=== PATIENT | female | born 1965 | race African-American/Black ===

== ENCOUNTER 2021-03-31 12:32 | Inpatient (IN) | payer BC, SELFPAY ==
[2021-03-31 12:33] VITALS: BP 147/99; PULSE 114; RESP 18; TEMP 36.6; O2SAT 100; BMI 22.8
--- NOTE | 2021-03-31 12:57 | CT_ITS ---
STUDY: CT ABDOMEN AND PELVIS WITH CONTRAST REASON FOR EXAM: Female, 56 years old. Abdominal pain. 3 day history of constipation. RADIATION DOSAGE (If Supplied By Facility): CTDIvol = ( 9.61 ) mGy, DLP = ( 454.55 ) mGycm TECHNIQUE: Transaxial images were obtained from the dome of the diaphragm to the symphysis pubis without oral contrast. IV 100mL Isovue-370 was administered. Sagittal and coronal images were reconstructed. Individualized dose optimization techniques were used for this CT. COMPARISON: None. FINDINGS: The visualized lung bases are unremarkable. The visualized portions of the heart are within normal limits. Normal liver. Normal gallbladder and extrahepatic biliary system. Normal spleen. Normal pancreas. Normal bilateral adrenal glands. Normal right kidney. Normal left kidney. Normal visualized stomach. Normal small intestine. There is evidence of a mural thickening of the descending colon as well as the sigmoid colon and rectum with increased markings in the surrounding fat. This is suggestive of a colitis. A moderate amount of fecal material is seen throughout the colon. There is a 1.9 cm x 2.5 cm fluid collection in the region of the anal verge at the level of the perineum. The appendix is visualized and appears normal. Normal abdominal aorta. Normal inferior vena cava. Normal retroperitoneum. Normal urinary bladder. Normal abdominal wall. Normal osseous structures. CT/Abdomen/Pelvis W IV Cont ONLY IMPRESSION: Findings suggestive of colitis of the left hemicolon as described. Moderate amount of fecal material is seen in the colon. A 1.9 cm x 2.5 cm fluid collection is seen in the region of the anal verge at the level of the perineum. Electronically Signed: Nael Paniagua MD at 14:22 EST ,
--- NOTE | 2021-03-31 12:59 | EX.ED.DYSGE1 ---
HPI <Dr. Ulises Soni MD - Last Filed: 04/06/21 09:14> History of Present Illness Chief Complaint: Constipation Informant: patient Narrative Narrative: Patient presents with complaints of constipation. She states her bowel started to kind to get bound up about 2 weeks ago. She was taking stool softeners and initially helping. But now she has not been able to move her bowels the last 3 days. However, when I talked to them concerned there might be more to the story. She is also had pain in the lower abdomen since the beginning. She cannot locate it really side to side. She states it does feel different than her normal constipation. She also has rectal pain that she thinks is due to hemorrhoids. She has a long history of hemorrhoids and is actually had surgery for them twice. No history of bowel disease. No known family history but she is adopted so she does not know. She has not had fevers or chills. No urinary symptoms. No blood in the stool. She states she is starting to get some liquid pasty stool out at this time. She is very uncomfortable. No chest pain. Only abdominal surgery is and a laparoscopy for ovarian cyst. Nothing really makes her symptoms better or worse. [facility] <Dr. Ulises Soni MD - Last Filed: 04/06/21 09:14> [facility] Medical History (Updated 04/02/21 @ 07:[address] Garber Friend, DO) Anemia Carpal tunnel syndrome H/O cardiovascular stress test Heart murmur Kidney stones Medical History no medical history Home Medications docusate sodium [Colace] 200 mg PO DAILY 03/31/21 [History Last Taken 03/30/21] ciprofloxacin HCl 500 mg PO BID #10 tab 04/02/21 [Rx Last Taken Unknown] hydrocortisone [Cortenema] 100 mg TX QHS #840 ml 04/02/21 [Rx Last Taken Unknown] mesalamine 800 mg PO BID #60 tab 04/02/21 [Rx Last Taken Unknown] metronidazole 500 mg PO Q8H #15 tab 04/02/21 [Rx Last Taken Unknown] Allergy/AdvReac Type Severity Reaction Status Date / Time Penicillins [PCN] Allergy Swelling Verified 03/31/21 12:35 prochlorperazine edisylate Allergy slurred Verified 03/31/21 18:28 [From Compazine] speech prochlorperazine maleate Allergy slurred Verified 03/31/21 18:29 [From Compazine] speech Surgical History (Updated 03/31/21 @ 20:22 by Chava Oneal) History of tonsillectomy Previous section Social History Smoking Status: Never smoker ROS <Dr. Ulises Soni MD - Last Filed: 04/06/21 09:14> ROS ED Constitutional Constitutional ED: Denies chills or fever(s) ENT ENT ED: Denies rhinorrhea or sore throat Cardiovascular Cardiovascular: Denies chest pain or palpitations Respiratory/Chest Respiratory/Chest: Denies cough or dyspnea Gastrointestinal Gastrointestinal: Reports abdominal pain, constipation, diarrhea, nausea and other Details: Patient's had constipation but is now getting some liquid stool/diarrhea around that. ; Denies melena or vomiting Genitourinary Genitourinary ED: Denies dysuria Musculoskeletal Musculoskeletal: Denies back pain Integumentary Denies abscess or rash Neurologic Neurologic: Denies headache(s) Psychiatric Psychiatric: Denies depression Endocrine Endocrinology: Denies polydipsia or polyuria Allergic/Immunologic Allergic/Immunologic ED: Denies mouth swelling or urticaria EXAM <Dr. Ulises Soni MD - Last Filed: 04/06/21 09:14> Physical Exam Const Vital Signs: 03/31/21 12:33 Temperature 98 F Temperature Source Temporal Pulse Rate 114 H Respiratory Rate 18 Blood Pressure 147/99 H Blood Pressure Mean 115 Pulse Ox 100 Oxygen Delivery Method Room Air Positive well nourished and well developed Constitutional Narrative: Patient looks uncomfortable. She is lying on her right side. General Appearance ED: well developed HEENT Negative for trauma Eyes General Eye ED: Negative for pale conjunctiva or scleral icterus Neck no JVD Chest Wall inspection of chest normal Resp normal respiratory effort and clear to auscultation bilaterally Effort and Inspection: Negative for pain with movement Auscultation: Negative for rales, rhonchi or wheezes Cardio regular rate and regular rhythm GI normal to inspection, nondistended, normoactive bowel sounds and non-distended GI Narrative: Abdomen is nondistended. Her bowel sounds are normal. She does have some tenderness down in the suprapubic and left lower quadrant. But no rebound or guarding. Rectal exam does show multiple hemorrhoids. The area is very tender but I do not see any sign of erythema warmth swelling or sign of infection. Exam is somewhat limited due to discomfort. No bleeding. Stool was light hicks. Auscultation: normoactive bowel sounds Palpation: soft Back/Spine no CVA tenderness Extremity normal to inspection General Extremety ED: Negative for edema or tenderness General Extremity: Negative for edema Neuro oriented x3 Sensorium / Orientation: alert Psych mental status grossly normal Skin no rashes or lesions noted and no wounds <Dr. Geovanny Padron, - Last Filed: 03/31/21 18:00> Physical Exam Const Vital Signs: 03/31/21 12:33 Temperature 98 F Temperature Source Temporal Pulse Rate 114 H Respiratory Rate 18 Blood Pressure 147/99 H Blood Pressure Mean 115 Pulse Ox 100 Oxygen Delivery Method Room Air MDM <Dr. Ulises Soni MD - Last Filed: 04/06/21 09:14> MDM MDM Narrative Medical decision making narrative: Patient's labs do show elevated white count of 15.9. Hemoglobin platelets are normal. Electrolytes show no marked abnormalities. Urine shows a few red cells but no white cells. My concern is her CT shows findings consistent with colitis but there is also a 1.9 x 2.5 cm fluid collection/abscess near the anal verge perineum on the left side. I think this is why her rectal pain is so significant. This did limit the exam although I do not see external findings of this. She is feeling markedly better after pain meds. She will be given IV antibiotics here. She has a history of allergy to penicillins but she states she has been on Keflex without a problem before. I talked to the surgeon, Dr. Carlson who is coming down to see the patient. Lab Data Attestation: I reviewed the patient's lab results. Labs: Laboratory Results - last 24 hr 03/31/21 03/31/21 03/31/21 13:20 13:20 13:40 WBC 15.9 H RBC 5.67 H Hgb 15.0 Hct 45.8 MCV 80.8 L MCH 26.5 L MCHC 32.8 RDW Std Deviation 39.3 RDW Coeff of Shanika 13.4 Plt Count 352 MPV 9.5 Immature Gran % (Auto) 0.300 Neut % (Auto) 92.2 H Lymph % (Auto) 5.3 L [place] % (Auto) 1.9 Eos % (Auto) 0.0 Baso % (Auto) 0.3 Absolute Neuts (auto) 14.7 H Absolute Lymphs (auto) 0.85 Nucleated RBC % 0 Sodium 139 Potassium 3.6 Chloride 105 Carbon Dioxide 25.0 Anion Gap 9 BUN 6 L Creatinine 0.90 Estim Creat Clear Calc 54.55 Est GFR (MDRD) Af Amer 83 Est GFR (MDRD) Non-Af 68 BUN/Creatinine Ratio 6.7 L Glucose 106 Calcium 9.5 Urine Color Yellow Urine Clarity Sl. Cloudy Urine pH 8.0 Ur Specific [place] 1.010 Urine Protein Negative Urine Glucose (UA) Normal Urine Ketones 15 H Urine Occult Blood 250 H Urine Nitrite Negative Urine Bilirubin Negative Urine Urobilinogen Normal Ur Leukocyte Esterase 25 H Urine RBC 25-50 SEEN Urine WBC 0-5 SEEN Ur Squamous Epith Cells 0-5 SEEN Urine Bacteria 0 SEEN Urine Mucus 0 SEEN Radiography Diagnostic Testing: Clinical Impression(s) from Imaging Studies Abdomen/Pelvis CT 03/31/21 12:57 IMPRESSION: Findings suggestive of colitis of the left hemicolon as described. Moderate amount of fecal material is seen in the colon. A 1.9 cm x 2.5 cm fluid collection is seen in the region of the anal verge at the level of the perineum. Electronically Signed: Nael Paniagua MD at 14:22 EST , <Dr. Geovanny Padron, DO - Last Filed: 03/31/21 18:00> [facility] Narrative Medical decision making narrative: Patient signed out to me for follow-up on consult from Dr. Carlson. Patient had presented with rectal pain and has an abscess of 1.9 x 2.5 at the anal verge. Blood work was reviewed and it is noted the patient has leukocytosis. Renal function is normal. Dr. Carlson came and examined the patient and recommended admission with IV antibiotics and a GI consult. I spoke with Dr. Carrillo who was amenable to this. After this I spoke with the hospitalist for admission. Lab Data Attestation: I reviewed the patient's lab results. Labs: Laboratory Results - last 24 hr 03/31/21 03/31/21 03/31/21 13:20 13:20 13:40 WBC 15.9 H RBC 5.67 H Hgb 15.0 Hct 45.8 MCV 80.8 L MCH 26.5 L MCHC 32.8 RDW Std Deviation 39.3 RDW Coeff of Shanika 13.4 Plt Count 352 MPV 9.5 Immature Gran % (Auto) 0.300 Neut % (Auto) 92.2 H Lymph % (Auto) 5.3 L [place] % (Auto) 1.9 Eos % (Auto) 0.0 Baso % (Auto) 0.3 Absolute Neuts (auto) 14.7 H Absolute Lymphs (auto) 0.85 Nucleated RBC % 0 Sodium 139 Potassium 3.6 Chloride 105 Carbon Dioxide 25.0 Anion Gap 9 BUN 6 L Creatinine 0.90 Estim Creat Clear Calc 54.55 Est GFR (MDRD) Af Amer 83 Est GFR (MDRD) Non-Af 68 BUN/Creatinine Ratio 6.7 L Glucose 106 Calcium 9.5 Urine Color Yellow Urine Clarity Sl. Cloudy Urine pH 8.0 Ur Specific [place] 1.010 Urine Protein Negative Urine Glucose (UA) Normal Urine Ketones 15 H Urine Occult Blood 250 H Urine Nitrite Negative Urine Bilirubin Negative Urine Urobilinogen Normal Ur Leukocyte Esterase 25 H Urine RBC 25-50 SEEN Urine WBC 0-5 SEEN Ur Squamous Epith Cells 0-5 SEEN Urine Bacteria 0 SEEN Urine Mucus 0 SEEN Radiography Diagnostic Testing: Clinical Impression(s) from Imaging Studies Abdomen/Pelvis CT 03/31/21 12:57 IMPRESSION: Findings suggestive of colitis of the left hemicolon as described. Moderate amount of fecal material is seen in the colon. A 1.9 cm x 2.5 cm fluid collection is seen in the region of the anal verge at the level of the perineum. Electronically Signed: Nael Paniagua MD at 14:22 EST , Discharge Plan Dx/Rx/DC Orders Clinical Impression: Acute colitis, Rectal abscess, Leukocytosis Disposition Disposition: Acute Care [facility]
[2021-03-31] MEDS: Morphine 4 MG/ML Syringe IV ×2 (13:17→17:59)
[2021-03-31] MEDS: 0.9% Normal Saline 1,000 ML 1000 ML IV (13:18)
[2021-03-31] MEDS: Ondansetron 4 MG/2 ML Vial IV ×2 (13:18→23:00)
[2021-03-31 13:28] LABS: Absolute Lymphocyte Count 0.85 X10^3/uL (0.83-4.51); Absolute Neutrophil Count 14.7 X10^3/uL (2.0-7.7); Basophil# 0.05 X10^3/uL; Basophil% 0.3 % (0-1); Hematocrit 45.8 % (37-47); Lymphocyte # 0.85 X10^3/ul (0.83-4.51); Lymphocyte % 5.3 % (19-41); Mean Corp Hgb Conc 32.8 g/dL (32-36); Mean Corpuscular Hgb 26.5 pg (27.0-32.0); Mean Corpuscular Volume 80.8 fL (81-99); Mean Platelet Vol. 9.5 fl (6.2-12.0); Monocyte% 1.9 % (0-10); NRBC Flagged by Analyzer 0 % (0-5); Neutrophil # 14.69 X10^3/uL (2.7-7.7); Neutrophil % 92.2 % (47-70); Platelet Count 352 K/mm3 (150-450); RBC Distribution Width CV 13.4 % (11.6-14.6); RBC Distribution Width SD 39.3 fl (35.1-43.9); Red Blood Count 5.67 M/mm3 (4.2-5.4); White Blood Count 15.9 K/mm3 (4.4-11.0)
[2021-03-31 13:42] LABS: Bacteria 0 SEEN /hpf (None Seen); Mucous, Urine 0 SEEN /hpf (<or=2+)
[2021-03-31 13:43] LABS: Anion Gap 9 (5-15); BUN 6 mg/dL (7-18); BUN/Creat Ratio 6.7 RATIO (10-20); Calcium,Total 9.5 mg/dL (8.5-10.1); Chloride 105 mmol/L (98-107); EST Glomerular Filtration Rate 68 mL/min (>60); Est Glom Filt Rate - Afr Amer 83 mL/min (>60); Estimated Creatinine Clearance 54.55 ml/min; Glucose 106 mg/dL (74-106); Potassium 3.6 mmol/L (3.5-5.1); Sodium Level 139 mmol/L (136-145)
[2021-03-31 13:45] LABS: Color, Urine Yellow (Yellow); Glucose, Dipstick Normal (Normal); Ketone-Dipstick 15 mg/dl (Negative); Leukocyte Esterase-Dipstick 25 /ul (Negative); Nitrite-Dipstick Negative (Negative); Occult Blood-Urine 250 /ul (Negative); Protein-Dipstick Negative (Negative); Urine Bilirubin Dipstick Negative (Negative); Urine Clarity Sl. Cloudy (Clear); Urine Urobilinogen Normal (Normal)
[2021-03-31 13:53] LABS: Red Blood Cells-Urine 25-50 SEEN /hpf (0-5); Squamous Epithelial Cells - UA 0-5 SEEN /hpf (5-10); White Blood Cells 0-5 SEEN /hpf (0-5)
--- NOTE | 2021-03-31 17:15 | CON.PCM.SX_ITS ---
Assessment & Plan Assessment/Plan (1) Rectal abscess: PLAN: Patient with a rectal abscess adjacent the posterior rectal wall. Laboratories show leukocytosis of almost 16,000. Unfortunately, per CT imaging, the abscess is quite high along the rectum roughly at the level of the pelvic floor levators. Patient has some tenderness on exam with the perianal skin, but there is no evidence of tracking to the level of the anus either on exam or with imaging. At this location, unfortunately, makes it rather inaccessible via either transperitoneal or transrectal approaches. CT-guided drain is not advised at this time given the proximity of the patient's rectum and risk for rectal injury. Therefore recommend conservative management with IV antibiotics. (2) Acute colitis: PLAN: This is a 56-year-old female with a history of constipation and normal colonoscopy 6 years ago but is due for an updated exam who presents with acute?onset abdominal, pelvic, and perianal pain. It is unusual to see concurrent colitis with a simple perirectal abscess. Therefore, I am concerned for the possibility of underlying inflammatory bowel disease. On exam, patient has tenderness with palpation, but denies any rebound effect. ?Recommend conservative management with n.p.o. except sips and chips and IV antibiotic therapy ?Recommend gastroenterology consult for rule out IBD ?Surgery will continue to follow patient's abdominal and perianal exams HPI Consult Data Date of Consult: 03/31/21 HPI Narrative HPI Narrative: NIXON HULL, is a 56 F who presents to [facility] with complaints of progressive abdominal pain, pain with defecation, increased frequency of bowel movements, and some fecal incontinence. Patient admits to a longstanding history of constipation for which she is experienced hemorrhoids and required surgery on 2 separate occasions. She states she began feeling more constipated 2 weeks ago and began taking [id number] stool softeners. Yesterday she noted some bloating, but today was awoken early in the morning with abdominal pain. Every time she experienced a bowel movement her pain inte nsified. She states she was kept from coming into the hospital because every time she tried to stand up she had a runny stool. She confirms there was some blood noted with these bowel movements as well. She experienced associated chills but denies any fevers. She has never had episodes like this before. Patient underwent colonoscopy over [address] [facility]. She states the results were fine and was given a 5-year follow-up. She is not able to relate to her family history since she was adopted at a very early age. [facility] Medical History no medical history Home Medications docusate sodium [Colace] 200 mg PO DAILY 03/31/21 [History Last Taken 03/30/21] Allergy/AdvReac Type Severity Reaction Status Date / Time Penicillins [PCN] Allergy Swelling Verified 03/31/21 12:35 prochlorperazine edisylate Allergy Other Verified 03/31/21 12:35 [From Compazine] prochlorperazine maleate Allergy Other Verified 03/31/21 12:35 [From Compazine] Surgical History History of tonsillectomy Social History Smoking Status: Never smoker Physical Exam Const alert and oriented x3 General Appearance: cooperative GI soft to palpation GI Narrative: Patient has no obvious scars. Patient tender to palpation diffusely but left lower quadrant is most significant. She denies any rebound tenderness Inspection: Negative for abdominal distention Rectal Exam: external hemorrhoid(s) and other Other Details: Patient with some residual circumferential skin tags. There is tenderness with palpation of the perianal skin right greater than left. No fluctuance or draining sinus tracts Lab / Micro Data Result Diagrams: 03/31/21 13:20 03/31/21 13:20 Labs: Laboratory Results - last 24 hr 03/31/21 13:20: WBC 15.9 H, RBC 5.67 H, Hgb 15.0, Hct 45.8, MCV 80.8 L, MCH 26.5 L, MCHC 32.8, RDW Std Deviation 39.3, RDW Coeff of Shanika 13.4, Plt Count 352, MPV 9.5, Immature Gran % (Auto) 0.300, Neut % (Auto) 92.2 H, Lymph % (Auto) 5.3 L, [place] % (Auto) 1.9, Eos % (Auto) 0.0, Baso % (Auto) 0.3, Absolute Neuts (auto) 14.7 H, Absolute Lymphs (auto) 0.85, Nucleated RBC % 0 02/16/22 13:20: Sodium 139, Potassium 3.6, Chloride 105, Carbon Dioxide 25.0, Anion Gap 9, BUN 6 L, Creatinine 0.90, Estim Creat Clear Calc 54.55, Est GFR (MDRD) Af Amer 83, Est GFR (MDRD) Non-Af 68, BUN/Creatinine Ratio 6.7 L, Glucose 106, Calcium 9.5 03/31/21 13:40: Urine Color Yellow, Urine Clarity Sl. Cloudy, Urine pH 8.0, Ur Specific [place] 1.010, Urine Protein Negative, Urine Glucose (UA) Normal, Urine Ketones 15 H, Urine Occult Blood 250 H, Urine Nitrite Negative, Urine Bilirubin Negative, Urine Urobilinogen Normal, Ur Leukocyte Esterase 25 H, Urine RBC 25-50 SEEN, Urine WBC 0-5 SEEN, Ur Squamous Epith Cells 0-5 SEEN, Urine Bacteria 0 SEEN, Urine Mucus 0 SEEN Radiology Impression Abdomen/Pelvis CT 03/31/21 12:57 IMPRESSION: Findings suggestive of colitis of the left hemicolon as described. Moderate amount of fecal material is seen in the colon. A 1.9 cm x 2.5 cm fluid collection is seen in the region of the anal verge at the level of the perineum. Electronically Signed: Nael Paniagua MD at 14:22 EST , Charges/Coding Visit Charges Inpatient E&M: 79151 Init Hosp L2
--- NOTE | 2021-03-31 17:51 | NURSING ---
DR MILAN FOR DR MCCOY
--- NOTE | 2021-03-31 17:53 | NURSING ---
MED SURG KAYLI ABSCESS
--- NOTE | 2021-03-31 18:10 | CASEMGMT ---
JOSE MONDRAGON Assessment: RN CM to room to meet with patient for initial transition planning/care coordination assessment. RN ALANNA introduced self and role at [facility]. Patient voices understanding and consents to assessment at this time. Patient's Ruthy present at bedside and active in transition planning. Patient is alert and oriented and answers all questions appropriately, reclined on ER cart in no apparent distress. Care providers, pharmacy, and demographics verified/updated at this time. Admitting Dx: rectal abscess PCP: Luz Maria Mills Specialists: Denies Preferred Pharmacy: [facility] Insurance: [place] Prescription Benefit: yes Living Will/HPOA: Patient denies having a living will. HPOA is Ruthy Grimes. Patient made aware this form is not on file at [facility] and may be brought in to be scanned into record. LNOK: Ruthy Grimes Living Arrangements: Patient lives with in single story, ground level duplex with no steps to enter. Patient states independent with ADLs prior to hospitalization. 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 Smoking/ETOH: Never smoker, denies ETOH use Transportation: Patient drives self and denies transportation concerns. DME/HHC/SNF: Patient denies having any DME in the home and denies need for DME at this time. Patient denies previous HHC or SNF stays. Patient has no concerns with going home at time of discharge. CM to follow for any discharge planning/needs. Patient voices no concerns/needs at this time. Advised patient to ask for CM if any questions/concerns/needs arise. Voices understanding. Plan: home
--- NOTE | 2021-03-31 18:12 | HP.PCM.HOS_ITS ---
HPI - General General Date of Admission: 03/31/21 Date of Service: 03/31/21 Chief Complaint: Chronic constipation and rectal pain for 3 days. Rectal bleed today HPI Narrative NIXON HULL, is a 56 F was sent to ER from urgent care. She has history of chronic constipation and usually have dry, hard pellet-like stool. She is having rectal pain which is progressively getting worse along with loose bowel movement for last 3 days. Rectal pain is more intense throbbing pain, 10/10 intensity, associated with rectal bleed today. She had 5-7 loose bowel movements with bright red rectal bleed today. She will remember that she had colonoscopy about 4 years ago and was not told anything abnormal as per the patient and . She has chills and temperature was 98.6 Fahrenheit in urgent care. Denies any chronic problem of GI bleed. Patient also noticed vaginal bleeding although she had not any menstrual period For last 2 years which she might have confused with rectal bleed. ED triage vitals shows tachycardia heart rate 114, BP 147/99, normal respiratory rate and pulse ox. Labs reviewed, imaging reviewed readmission assessment plan. [facility] Medical History Anemia Carpal tunnel syndrome Heart murmur Kidney stones Medical History no medical history Home Medications docusate sodium [Colace] 200 mg PO DAILY 03/31/21 [History Last Taken 03/30/21] Allergy/AdvReac Type Severity Reaction Status Date / Time Penicillins [PCN] Allergy Swelling Verified 03/31/21 12:35 prochlorperazine edisylate Allergy slurred Verified 03/31/21 18:28 [From Compazine] speech prochlorperazine maleate Allergy slurred Verified 03/31/21 18:29 [From Compazine] speech Surgical History History of tonsillectomy Social History Smoking Status: Never smoker ROS ROS Narrative Constitutional: Rectal pain chills but no fever. Mild fatigue/weakness HEENT: Reports systems reviewed and no addt'l complaints, except as documented Respiratory/Chest: Denies chest pain, shortness of breath at rest or with exertion Gastrointestinal: As described in HPI. History of chronic hemorrhoid, last tomorrow surgery more than 20 years ago Genitourinary: Self-reported vaginal bleeding possible from rectum. Denies burning urination or new urinary tract symptoms Musculoskeletal: Denies joint pain and limited range of motion Neurologic: Denies seizure-like activity skin: No ulcer. No rash Endocrinology: Reports systems reviewed and no addt'l complaints, except as documented Hematologic/Lymphatic: Reports systems reviewed and no addt'l complaints, except as documented Rest 14 ROS are negative except as mentioned in HPI Vital Signs Vital Signs Vital Signs: 03/31/21 12:33 Temperature 98 F Temperature Source Temporal Pulse Rate 114 H Respiratory Rate 18 Blood Pressure 147/99 H Blood Pressure Mean 115 Pulse Ox 100 Oxygen Delivery Method Room Air Weight Weight: 125 lb Body Mass Index (BMI) 22.8 Physical Exam Narrative General: Alert, Oriented x3, Cooperative HEENT: Atraumatic, PERRLA, EOMI, Normocephalic Oral: Oral mucosa dry. No Gingival or Mucosal Lesions/ Ulcerations Neck: Supple, No JVD, Negative Carotid Bruits Lungs: Air entry equal in bilateral lung bases. No crepitation/rhonchi Cardiovascular: Regular rate, Regular Rhythm, Normal S1, Normal S2, No murmurs Abdomen: Bowel Sounds Present, Soft, moderate to severe tenderness present on left lower quadrant. Right: Exam already done by surgeon. : No renal angle tenderness. No suprapubic tenderness. Extremities: No edema, Capillary Refill Less than 3 Seconds Skin: No rashes, No breakdown Musculoskeletal: No Tenderness to Palpation of Joints or Extremities Neurological: Cranial nerves II-XII grossly intact, DTR 2+/4 and Symmetrical, Neuro grossly intact Psych/Mental Status: Normal Affect, Appropriate. Results Lab / Micro Data Result Diagrams: 03/31/21 13:20 03/31/21 13:20 Labs: Laboratory Results - last 24 hr 03/31/21 13:20: WBC 15.9 H, RBC 5.67 H, Hgb 15.0, Hct 45.8, MCV 80.8 L, MCH 26.5 L, MCHC 32.8, RDW Std Deviation 39.3, RDW Coeff of Shanika 13.4, Plt Count 352, MPV 9.5, Immature Gran % (Auto) 0.300, Neut % (Auto) 92.2 H, Lymph % (Auto) 5.3 L, [place] % (Auto) 1.9, Eos % (Auto) 0.0, Baso % (Auto) 0.3, Absolute Neuts (auto) 14.7 H, Absolute Lymphs (auto) 0.85, Nucleated RBC % 0 03/31/21 13:20: Sodium 139, Potassium 3.6, Chloride 105, Carbon Dioxide 25.0, Anion Gap 9, BUN 6 L, Creatinine 0.90, Estim Creat Clear Calc 54.55, Est GFR (MDRD) Af Amer 83, Est GFR (MDRD) Non-Af 68, BUN/Creatinine Ratio 6.7 L, Glucose 106, Calcium 9.5 03/31/21 13:40: Urine Color Yellow, Urine Clarity Sl. Cloudy, Urine pH 8.0, Ur Specific [place] 1.010, Urine Protein Negative, Urine Glucose (UA) Normal, Urine Ketones 15 H, Urine Occult Blood 250 H, Urine Nitrite Negative, Urine Bilirubin Negative, Urine Urobilinogen Normal, Ur Leukocyte Esterase 25 H, Urine RBC 25-50 SEEN, Urine WBC 0-5 SEEN, Ur Squamous Epith Cells 0-5 SEEN, Urine Bacteria 0 SEEN, Urine Mucus 0 SEEN Radiology Impression Abdomen/Pelvis CT 03/31/21 12:57 IMPRESSION: Findings suggestive of colitis of the left hemicolon as described. Moderate amount of fecal material is seen in the colon. A 1.9 cm x 2.5 cm fluid collection is seen in the region of the anal verge at the level of the perineum. Electronically Signed: Nael Paniagua MD at 14:22 EST , Assessment & Plan Assessment/Plan (1) Rectal abscess: PLAN: 1. Rectal abscess: [facility] abdomen shows 1.9 x 2.5 cm fluid collection in region of anal verge at level of perineum. Patient has leukocytosis with left shift. H&H 15/45.8. UA shows RBC 25-50 cells, LE 25 but negative nitrite. Electrolytes within normal limit. Anion gap 9. Patient evaluated by surgeon and it seems rectal abscess is quite high at level of pelvic floor collimators. As per surgeon on rectal exam, external hemorrhoids none circumferential residual skin tags but no fluctuance or draining sinus tract found. No abscesses not amenable for drainage either transperitoneal or transrectal approach and CT-guided drainage not advised due to proximity of patient's rectum. Patient had IV meropenem in the ER. Started on IV Cipro and Flagyl. Clear liquid diet. 2. Left sided colitis: CT abdomen shows colitis of left hemicolon with moderate fecal matter. There is concern for inflammatory bowel disease and was recommended gastroenterology consult by surgeon. 3. History of parapharyngeal and retropharyngeal abscess in June 2014 for she was admitted. 4. History of chronic constipation, hemorrhoids with suspicion of IBS: Patient had 2 hemorrhoidal surgery, last one more than 20 years ago. No recent GI bleed until bright red rectal bleed today. 5. History of kidney stones and C Total time of the visit including total time spent in counseling or coordination of care, (more than 50% of the total time, spent in obtaining medical information from nurses and other ancillary care providers,explaining to the patient about labs, imaging, diagnosis and management), discussion with recruiting operations consultant, review of labs and imaging is 45 minutes. Living will/advanced directive/end of life care: Patient does have living will or advanced directive. Her is power of health care attorney for health. After discu ssion of benefits/risks procedures involved with full code, DNR CC arrest and DNR CC, the patient and her opted for full code. Patient does want artificial life support including intubation, tube feed, ventilator and/chest compression, central venous catheter, vasopressor and DC shock if needed Total time spent in ldby-ur-ptix encounter in discussion of advanced directive 16 minutes. Charges/Coding Visit Charges Inpatient E&M: 97314 Init Hosp L3 Procedures Hospitalists Procedures: 24065 Advncd Care Plan 30 Min
[2021-03-31 18:26] VITALS: BP 138/91; PULSE 68; RESP 16; TEMP 36.9; O2SAT 98
[2021-03-31 18:44] VITALS: BMI 23.1
[2021-03-31 18:48] VITALS: BP 126/76; PULSE 64; RESP 16; TEMP 37; O2SAT 100
[2021-03-31 19:10] LABS: AST(SGOT) 19 U/L (15-37); Alanine Aminotransfer ALT/SGPT 18 U/L (13-56); Alkaline Phosphatase 106 U/L (45-117); Bilirubin, Direct 0.21 mg/dL (0.00-0.30); Magnesium 1.9 mg/dL (1.6-2.6)
--- NOTE | 2021-03-31 19:18 | EX.PCM.CON.G ---
HPI Consult Data Date of Consult: 03/31/21 HPI Narrative HPI Narrative: NIXON HULL, is a 56 F who presents presents from home with worsening abdominal pain. She has a history of hemorrhoidal disease status post 2 hemorrhoidectomies. She also had removal of an ovarian cyst. She has been struggling with chronic constipation. She is not known to have diverticular disease. She has been having some rectal pain over the last several days. It progressed to lower GI bleeding after finally having a bowel movement. She states her bowel started to kind to get bound up about 2 weeks ago. She was taking stool softeners and initially helping. But now she has not been able to move her bowels the last 3 days. However, when I talked to them concerned there might be more to the story. She is also had pain in the lower abdomen since the beginning. She cannot locate it really side to side. She states it does feel different than her normal constipation. She also has rectal pain that she thinks is due to hemorrhoids. No history of bowel disease. No known family history but she is adopted so she does not know. She has not had fevers or chills. No urinary symptoms. No blood in the stool. She states she is starting to get some liquid pasty stool out at this time. She is very uncomfortable. No chest pain. [facility] Medical History Anemia Carpal tunnel syndrome Heart murmur Kidney stones Medical History no medical history Home Medications docusate sodium [Colace] 200 mg PO DAILY 03/31/21 [History Last Taken 03/30/21] Allergy/AdvReac Type Severity Reaction Status Date / Time Penicillins [PCN] Allergy Swelling Verified 03/31/21 12:35 prochlorperazine edisylate Allergy slurred Verified 03/31/21 18:28 [From Compazine] speech prochlorperazine maleate Allergy slurred Verified 03/31/21 18:29 [From Compazine] speech Surgical History History of tonsillectomy Social History Smoking Status: Never smoker ROS Gastrointestinal Gastrointestinal: Reports other Details: Rectal pain Lab / Micro Data Result Diagrams: 03/31/21 13:20 03/31/21 13:20 Labs: Laboratory Results - last 24 hr 03/31/21 13:20: WBC 15.9 H, RBC 5.67 H, Hgb 15.0, Hct 45.8, MCV 80.8 L, MCH 26.5 L, MCHC 32.8, RDW Std Deviation 39.3, RDW Coeff of [place] 13.4, Plt Count 352, MPV 9.5, Immature Gran % (Auto) 0.300, Neut % (Auto) 92.2 H, Lymph % (Auto) 5.3 L, [place] % (Auto) 1.9, Eos % (Auto) 0.0, Baso % (Auto) 0.3, Absolute Neuts (auto) 14.7 H, Absolute Lymphs (auto) 0.85, Nucleated RBC % 0 03/31/21 13:20: Sodium 139, Potassium 3.6, Chloride 105, Carbon Dioxide 25.0, Anion Gap 9, BUN 6 L, Creatinine 0.90, Estim Creat Clear Calc 54.55, Est GFR (MDRD) Af Amer 83, Est GFR (MDRD) Non-Af 68, BUN/Creatinine Ratio 6.7 L, Glucose 106, Calcium 9.5 03/31/21 13:20: Magnesium 1.9, Total Bilirubin 0.90, Direct Bilirubin 0.21, AST 19, ALT 18, Alkaline Phosphatase 106, Total Protein 8.0, Albumin 4.0, Globulin 4.0 03/31/21 13:40: Urine Color Yellow, Urine Clarity Sl. Cloudy, Urine pH 8.0, Ur Specific [place] 1.010, Urine Protein Negative, Urine Glucose (UA) Normal, Urine Ketones 15 H, Urine Occult Blood 250 H, Urine Nitrite Negative, Urine Bilirubin Negative, Urine Urobilinogen Normal, Ur Leukocyte Esterase 25 H, Urine RBC 25-50 SEEN, Urine WBC 0-5 SEEN, Ur Squamous Epith Cells 0-5 SEEN, Urine Bacteria 0 SEEN, Urine Mucus 0 SEEN Radiology Impression Abdomen/Pelvis CT 03/31/21 12:57 IMPRESSION: Findings suggestive of colitis of the left hemicolon as described. Moderate amount of fecal material is seen in the colon. A 1.9 cm x 2.5 cm fluid collection is seen in the region of the anal verge at the level of the perineum. Electronically Signed: Nael Paniagua MD at 14:22 EST , Assessment & Plan Assessment/Plan (1) Acute colitis: PLAN: Due to her diagnosis does include ischemic colitis, ulcerative colitis, less likely Crohn's disease, stercoral ulcer syndrome. She should undergo colonoscopy evaluate her lower GI tract. She was explained alternatives, risk, benefits including understanding bleeding, infection, sepsis, perforation, need for emergency or . She have an ASA of 1. (2) Rectal abscess: PLAN: She will undergo colonoscopy to evaluate her rectum. She will likely need MRI of the pelvis to make sure that there is no area that can be drained percutaneously or surgically. Charges/Coding Visit Charges Inpatient E&M: 41311 Init Hosp L3
[2021-03-31] MEDS: Bisacodyl 5 MG Tablet 20 MG PO (20:01)
[2021-03-31] MEDS: Lactated Ringers 1,000 ML 100 ML IV (20:01)
[2021-03-31] MEDS: metroNIDAZOLE 500 MG/100 ML BAG 100 MG IV (20:01)
[2021-03-31] MEDS: Polyethylene Glycol 3350 BOWEL PREP PO (20:33)
[2021-03-31] MEDS: Ciprofloxacin 400 MG/200 ML BAG 200 MG IV (21:38)
[2021-03-31] MEDS: Morphine 2 MG/ML Syringe IV (23:00)
[2021-04-01] VITALS (11 sets, daily range): BP systolic 98–133; BP diastolic 62–86; PULSE 59–86; RESP 16–17; TEMP 36.6–37.7; O2SAT 96–100; BMI 23.1
[2021-04-01] MEDS: Lactated Ringers 1,000 ML 100 ML IV (05:43)
[2021-04-01] MEDS: metroNIDAZOLE 500 MG/100 ML BAG 100 MG IV ×3 (05:43→21:38)
[2021-04-01 06:44] LABS: Absolute Lymphocyte Count 2.31 X10^3/uL (0.83-4.51); Absolute Neutrophil Count 6.1 X10^3/uL (2.0-7.7); Basophil# 0.04 X10^3/uL; Basophil% 0.4 % (0-1); Eosinophil# 0.08 X10^3/uL; Eosinophils% 0.9 % (0-5); Hematocrit 35.9 % (37-47); Lymphocyte # 2.31 X10^3/ul (0.83-4.51); Lymphocyte % 25.3 % (19-41); Mean Corp Hgb Conc 33.4 g/dL (32-36); Mean Corpuscular Hgb 27.4 pg (27.0-32.0); Mean Platelet Vol. 9.2 fl (6.2-12.0); Monocyte# 0.51 X10^3/uL; Monocyte% 5.6 % (0-10); NRBC Flagged by Analyzer 0 % (0-5); Neutrophil # 6.13 X10^3/uL (2.7-7.7); Neutrophil % 67.3 % (47-70); Platelet Count 252 K/mm3 (150-450); RBC Distribution Width CV 13.4 % (11.6-14.6); RBC Distribution Width SD 40.1 fl (35.1-43.9); Red Blood Count 4.38 M/mm3 (4.2-5.4); White Blood Count 9.1 K/mm3 (4.4-11.0)
[2021-04-01 07:49] LABS: Anion Gap 6 (5-15); BUN 6 mg/dL (7-18); BUN/Creat Ratio 7.7 RATIO (10-20); Calcium,Total 8.1 mg/dL (8.5-10.1); Chloride 106 mmol/L (98-107); Creatinine, Serum 0.78 mg/dL (0.55-1.02); EST Glomerular Filtration Rate 81 mL/min (>60); Est Glom Filt Rate - Afr Amer 98 mL/min (>60); Estimated Creatinine Clearance 62.94 ml/min; Glucose 91 mg/dL (74-106); Potassium 3.4 mmol/L (3.5-5.1); Sodium Level 138 mmol/L (136-145)
--- NOTE | 2021-04-01 09:52 | PN.SURG_ITS ---
Subjective Subjective Patient was seen and examined this morning during AM rounds. She reports that she is feeling much better. She is currently ingesting a bowel prep for a colonoscopy anticipated this afternoon. Although she reports improvement in her abdominal pain, she is still experiencing painful bowel movements. She describes her stools as loose and associated with a small amount of bright red blood. Objective Data Objective Data Vital Signs: Vital Signs Temp Pulse Resp BP Pulse Ox 98.1 F 67 16 109/62 100 04/01/21 08:33 04/01/21 08:33 04/01/21 08:33 04/01/21 08:33 04/01/21 08:33 Oxygen Delivery Method Room Air Weight: 126 lb 8.725 oz Body Mass Index (BMI) 23.1 Intake & Output: Intake and Output for Last 24 Hours 03/30/21 03/31/21 04/01/21 23:59 23:59 23:59 Intake Total 1420 / 2620 2510 / 2510 Balance 1420 / 2620 2510 / 2510 Lab / Micro Data Result Diagrams: 04/01/21 06:37 04/01/21 06:37 Labs: Laboratory Results - last 24 hr 03/31/21 13:20: WBC 15.9 H, RBC 5.67 H, Hgb 15.0, Hct 45.8, MCV 80.8 L, MCH 26.5 L, MCHC 32.8, RDW Std Deviation 39.3, RDW Coeff of [place]ika 13.4, Plt Count 352, MPV 9.5, Immature Gran % (Auto) 0.300, Neut % (Auto) 92.2 H, Lymph % (Auto) 5.3 L, [place] % (Auto) 1.9, Eos % (Auto) 0.0, Baso % (Auto) 0.3, Absolute Neuts (auto) 14.7 H, Absolute Lymphs (auto) 0.85, Nucleated RBC % 0 03/31/21 13:20: Sodium 139, Potassium 3.6, Chloride 105, Carbon Dioxide 25.0, Anion Gap 9, BUN 6 L, Creatinine 0.90, Estim Creat Clear Calc 54.55, Est GFR (MDRD) Af Amer 83, Est GFR (MDRD) Non-Af 68, BUN/Creatinine Ratio 6.7 L, Glucose 106, Calcium 9.5 03/31/21 13:20: Magnesium 1.9, Total Bilirubin 0.90, Direct Bilirubin 0.21, AST 19, ALT 18, Alkaline Phosphatase 106, Total Protein 8.0, Albumin 4.0, Globulin 4.0 03/31/21 13:40: Urine Color Yellow, Urine Clarity Sl. Cloudy, Urine pH 8.0, Ur Specific [place] 1.010, Urine Protein Negative, Urine Glucose (UA) Normal, Urine Ketones 15 H, Urine Occult Blood 250 H, Urine Nitrite Negative, Urine Bilirubin Negative, Urine Urobilinogen Normal, Ur Leukocyte Esterase 25 H, Urine RBC 25-50 SEEN, Urine WBC 0-5 SEEN, Ur Squamous Epith Cells 0-5 SEEN, Urine Bacteria 0 SEEN, Urine Mucus 0 SEEN 04/01/21 06:37: WBC 9.1, RBC 4.38, Hgb 12.0, Hct 35.9 L, MCV 82.0, MCH 27.4, MCHC 33.4, RDW Std Deviation 40.1, RDW Coeff of [place]ika 13.4, Plt Count 252, MPV 9.2, Immature Gran % (Auto) 0.500, Neut % (Auto) 67.3, Lymph % (Auto) 25.3, [place] % (Auto) 5.6, Eos % (Auto) 0.9, Baso % (Auto) 0.4, Absolute Neuts (auto) 6.1, Absolute Lymphs (auto) 2.31, Nucleated RBC % 0 04/01/21 06:37: Sodium 138, Potassium 3.4 L, Chloride 106, Carbon Dioxide 26.0, Anion Gap 6, BUN 6 L, Creatinine 0.78, Estim Creat Clear Calc 62.94, Est GFR (MDRD) Af Amer 98, Est GFR (MDRD) Non-Af 81, BUN/Creatinine Ratio 7.7 L, Glucose 91, Calcium 8.1 L Radiography Diagnostic Testing: Radiology Impression Abdomen/Pelvis CT 03/31/21 12:57 IMPRESSION: Findings suggestive of colitis of the left hemicolon as described. Moderate amount of fecal material is seen in the colon. A 1.9 cm x 2.5 cm fluid collection is seen in the region of the anal verge at the level of the perineum. Electronically Signed: Nael Paniagua MD at 14:22 EST , Physical Exam Const oriented x3 and no apparent distress Resp normal respiratory effort GI soft to palpation GI Narrative: Patient has significant tenderness in the left lower quadrant just above her pubic bone with some mild voluntary guarding but no rebound tenderness Palpation: tender LLQ Assessment & Plan Assessment/Plan (1) Acute colitis: PLAN: Abdominal exam appears somewhat improved hospital day 2. Patient due for colonoscopy with gastroenterology later today when she completes bowel prep. ?We will follow the results of the above scope ?Continue IV antibiotic therapy ?Given the patient's improvement in clinical exam, could consider advancement to a clear liquid diet following endoscopy, from a surgical standpoint (2) Rectal abscess: PLAN: Patient relates ongoing discomfort from bowel movements. Patient denies any reports of purulent discharge that might suggest spontaneous transrectal drainage. CT imaging was reviewed again and it appears she has an element of proctitis along with a perirectal abscess. Unfortunately CT imaging demonstrates this abscess to be rather narrow and located in a difficult position to be accessed without advanced imaging. Therefore, recommend continued conservative management with IV antibiotics and will again follow results of his afternoon's scope. Charges/Coding Visit Charges Inpatient E&M: 93962 Subs Hosp L2
[2021-04-01] MEDS: Ciprofloxacin 400 MG/200 ML BAG 200 MG IV ×2 (10:26→22:45)
--- NOTE | 2021-04-01 10:59 | PN.HOSP_ITS ---
Documented by User: Ab LORENZO 04/01/21 11:14 Subjective Subjective Patient is a 56-year-old female comfortably resting in bed, alert and orient x3. Patient denies development of any new symptoms overnight. Does not appear in acute distress. Objective Data Objective Data Vital Signs: Vital Signs Temp Pulse Resp BP Pulse Ox 98.1 F 67 16 109/62 100 04/01/21 08:33 04/01/21 08:33 04/01/21 08:33 04/01/21 08:33 04/01/21 08:33 Oxygen Delivery Method Room Air Weight: 126 lb 8.725 oz Body Mass Index (BMI) 23.1 Intake & Output: Intake and Output for Last 24 Hours 03/30/21 03/31/21 04/01/21 23:59 23:59 23:59 Intake Total 1420 / 2620 2510 / 2510 Balance 1420 / 2620 2510 / 2510 Lab / Micro Data Result Diagrams: 04/01/21 06:37 04/01/21 06:37 Labs: Laboratory Results - last 24 hr 03/31/21 13:20: WBC 15.9 H, RBC 5.67 H, Hgb 15.0, Hct 45.8, MCV 80.8 L, MCH 26.5 L, MCHC 32.8, RDW Std Deviation 39.3, RDW Coeff of [place]ika 13.4, Plt Count 352, MPV 9.5, Immature Gran % (Auto) 0.300, Neut % (Auto) 92.2 H, Lymph % (Auto) 5.3 L, [place] % (Auto) 1.9, Eos % (Auto) 0.0, Baso % (Auto) 0.3, Absolute Neuts (auto) 14.7 H, Absolute Lymphs (auto) 0.85, Nucleated RBC % 0 03/31/21 13:20: Sodium 139, Potassium 3.6, Chloride 105, Carbon Dioxide 25.0, Anion Gap 9, BUN 6 L, Creatinine 0.90, Estim Creat Clear Calc 54.55, Est GFR (MDRD) Af Amer 83, Est GFR (MDRD) Non-Af 68, BUN/Creatinine Ratio 6.7 L, Glucose 106, Calcium 9.5 03/31/21 13:20: Magnesium 1.9, Total Bilirubin 0.90, Direct Bilirubin 0.21, AST 19, ALT 18, Alkaline Phosphatase 106, Total Protein 8.0, Albumin 4.0, Globulin 4.0 03/31/21 13:40: Urine Color Yellow, Urine Clarity Sl. Cloudy, Urine pH 8.0, Ur Specific [place] 1.010, Urine Protein Negative, Urine Glucose (UA) Normal, Urine Ketones 15 H, Urine Occult Blood 250 H, Urine Nitrite Negative, Urine Bilirubin Negative, Urine Urobilinogen Normal, Ur Leukocyte Esterase 25 H, Urine RBC 25-50 SEEN, Urine WBC 0-5 SEEN, Ur Squamous Epith Cells 0-5 SEEN, Urine Bacteria 0 S EEN, Urine Mucus 0 SEEN 04/01/21 06:37: WBC 9.1, RBC 4.38, Hgb 12.0, Hct 35.9 L, MCV 82.0, MCH 27.4, MCHC 33.4, RDW Std Deviation 40.1, RDW Coeff of [place]ika 13.4, Plt Count 252, MPV 9.2, Immature Gran % (Auto) 0.500, Neut % (Auto) 67.3, Lymph % (Auto) 25.3, [place] % (Auto) 5.6, Eos % (Auto) 0.9, Baso % (Auto) 0.4, Absolute Neuts (auto) 6.1, Absolute Lymphs (auto) 2.31, Nucleated RBC % 0 04/01/21 06:37: Sodium 138, Potassium 3.4 L, Chloride 106, Carbon Dioxide 26.0, Anion Gap 6, BUN 6 L, Creatinine 0.78, Estim Creat Clear Calc 62.94, Est GFR (MDRD) Af Amer 98, Est GFR (MDRD) Non-Af 81, BUN/Creatinine Ratio 7.7 L, Glucose 91, Calcium 8.1 L Radiography Diagnostic Testing: Radiology Impression Abdomen/Pelvis CT 03/31/21 12:57 IMPRESSION: Findings suggestive of colitis of the left hemicolon as described. Moderate amount of fecal material is seen in the colon. A 1.9 cm x 2.5 cm fluid collection is seen in the region of the anal verge at the level of the perineum. Electronically Signed: Nael Paniagua MD at 14:22 EST , Physical Exam Const alert, oriented x3 and no apparent distress HEENT head/scalp atraumatic and moist oral mucous membranes Head and Scalp: normocephalic Eyes PERRL, EOMs intact bilaterally and conjunctivae normal Neck no lymphadenopathy, supple and no JVD Resp normal respiratory effort, no retractions and no use of accessory muscles Cardio regular rate, regular rhythm and no JVD GI normal to inspection, nondistended, normoactive bowel sounds GI Narrative: Tenderness to palpation about the left lower quadrant. Palpation: tender Extremity normal to inspection Skin no rashes or lesions noted, no wounds and skin turgor normal Neuro CN's II-XII intact bilaterally Psych affect normal Assessment & Plan Assessment/Plan (1) Acute colitis: (2) Rectal abscess: PLAN: Day 1 Discharge planning: Current plan is for patient to discharge home when medically ready. 1) Rectal abscess CT of the abdomen on admission demonstrated a 1.9 x 2.5 cm fluid collection in the region of the anal verge at the level of perineum. General surgery recommendations are to continue with IV antibiotics and proceed with colonoscopy scheduled for later on today, not a candidate for incision and drainage at this time due to difficulty in the approach. General surgery will continue to follow. Continue IV Cipro and Flagyl, as needed medications ordered. 2) Acute colitis CT abdomen shows colitis of left hemicolon with moderate fecal matter. GI consulted, to undergo colonoscopy later on today. 3) hypokalemia Replaced, will continue to monitor. DVT prophylaxis - Lovenox Patient seen by Ab Bernabe PA-C, under the supervision of Dr. Aquino. Time spent on patient care: 9 minutes. Documented by User: Dr. Guru Aquino, 04/01/21 13:42 Subjective Subjective Feels ok currently. Objective Data Lab / Micro Data Result Diagrams: 04/01/21 06:37 04/01/21 06:37 Physical Exam Resp normal respiratory effort, no retractions, no use of accessory muscles and clear to auscultation bilaterally Cardio regular rate, regular rhythm, S1 normal heart sound and S2 normal heart sound GI normal to inspection, nondistended, normoactive bowel sounds, soft to palpation, non-tender and non-distended Rectal Exam: visual inspection normal and external hemorrhoid(s); Negative for abnormal stool Extremity normal to inspection and no clubbing, cyanosis or edema Skin no rashes or lesions noted and no wounds Neuro Sensorium / Orientation: awake Assessment & Plan Assessment/Plan (1) Rectal abscess: PLAN: Patient seen and examined independently. Data and vitals reviewed. I agree with the above note by the physician clinical trial assistant. 1. Rectal abscess Not amenable to surgery given location and narrow diameter General surgery on consult Continue with antibiotics with ciprofloxacin and metronidazole 2. Colitis GI in consult Plan for colonoscopy today Etiology of colitis is unknown at present. Could be infectious versus inflammatory, less likely ischemic. Greater than 20 minutes of which greater than 50% of the time was counseling the pt at bedside about abscess and treatment. Charges/Coding Visit Charges Inpatient E&M: 99962 Subs Hosp L2
--- NOTE | 2021-04-01 12:30 | COLBX_PTH ---
PATIENT: NIXON HULL LOC: MS3 U#:[id number] AGE/SX: 56/F ROOM: [facility] RE03/31/[address]: Dr. Guru Aquino DO : 1965 BED: 1 DIS: 04/02/2021 SPEC #: [id number] RECD: 04/01/21 14:31 STATUS: BRIDGET BANUELOS #: [id number] LEOPOLDO: 04/01/21 12:[address]: Ra Gerardohsaan DEPT: SURGICAL PATHOLOGY RECD BY: Quin Pérez ENTERED: 04/02/21 09:24 SP TYPE: COLON BX OTHR DR: MD Dr. Guru Cm DO Dr. Michael Bortz, MD Dr. Prakash Chand, MD Tissues: Sigmoid colon biopsy Procedures: Surgery Specimen Level IV HEADER OPERATION: Colonoscopy (MAC) PRE-OP DIAGNOSIS: Acute colitis, rectal abscess TISSUE SUBMITTED: Sigmoid colon biopsy MICROSCOPIC DIAGNOSIS Sigmoid colon, biopsy: No pathologic change. AM:catrachito 04/05/2021 MICROSCOPIC DESCRIPTION Slides are reviewed. GROSS DESCRIPTION Received in fixative is one container labeled with the patient's name and designated sigmoid colon biopsy. The specimen consists of one irregular fragment of light hicks soft tissue that measures 0.3 x 0.2 x 0.1 cm. The specimen is totally submitted in one cassette. / SJ:catrachito 04/02/2021 TC:5 CPT: 64232
--- NOTE | 2021-04-01 15:08 | MRI_ITS ---
EXAM: MR PELVIS WITHOUT AND WITH INTRAVENOUS CONTRAST CLINICAL INDICATION: perirectal abscess TECHNIQUE: Multiplanar and multisequence MR images of the pelvis without and with intravenous contrast. This report was created using [employer] report generation technology. CONTRAST: IV,11CC COMPARISON: None. FINDINGS: 1.5 cm fibroid at the left myometrium. No perirectal abscess identified. 1.5 cm left myometrial fibroid. No free air or free pelvic fluid. No concerning marrow signal alterations. Perirectal wall thickening concerning for proctitis. MRI/Pelvis W/WO Contrast IMPRESSION: Proctitis suspected but no abscess is identified. Electronically Signed: Tono Gandara MD at 2:22 EST ,
[2021-04-01] MEDS: Ondansetron 4 MG/2 ML Vial IV (17:19)
[2021-04-01] MEDS: Morphine 2 MG/ML Syringe IV (17:19)
[2021-04-01] MEDS: 0.9% Saline Lock 10 ML Syringe IV ×2 (17:20→21:40)
[2021-04-01] MEDS: Menthol/Lanolin/Calamine/Znox 113 GM Tube 1 APPLIC TOPICAL ×2 (17:23→21:40)
--- NOTE | 2021-04-01 17:49 | OP.COLON_ITS ---
Patient Name: Pamela Grimes Procedure Date: 04/01/2021 1:02 PM Date of : 1965 Age: 56 Procedure: Colonoscopy Indications: Periumbilical abdominal distress, Abnormal CT of the GI tract Providers: Jcarlos Carrillo DO Referring MD: Javan Quispe Medicines: See the Anesthesia note for documentation of the administered medications Patient Profile: Last Colonoscopy: 5 years ago. Complications: No immediate complications. Procedure: Pre-Anesthesia Assessment: - Prior to the procedure, a History and Physical was performed, and patient medications and allergies were reviewed. The patient is competent. The risks and benefits of the procedure and the sedation options and risks were discussed with the patient. All questions were answered and informed consent was obtained. Patient identification and proposed procedure were verified by the physician in the pre-procedure area. Mental Status Examination: alert and oriented. Airway Examination: normal oropharyngeal airway and neck mobility. Respiratory Examination: clear to auscultation. CV Examination: normal. Prophylactic Antibiotics: The patient does not require prophylactic antibiotics. Prior Anticoagulants: The patient has taken no previous anticoagulant or antiplatelet agents. ASA Grade Assessment: II - A patient with mild systemic disease. After reviewing the risks and benefits, the patient was deemed in satisfactory condition to undergo the procedure. The anesthesia plan was to use moderate sedation / analgesia (conscious sedation). Immediately prior to administration of medications, the patient was re-assessed for adequacy to receive sedatives. The heart rate, respiratory rate, oxygen saturations, blood pressure, adequacy of pulmonary ventilation, and response to care were monitored throughout the procedure. The physical status of the patient was re-assessed after the procedure. After I obtained informed consent, the scope was passed under direct vision. Throughout the procedure, the patient's blood pressure, pulse, and oxygen saturations were monitored continuously. The pediatric colonoscope was introduced through the anus and advanced to the splenic flexure. The colonoscopy was performed without difficulty. The patient tolerated the procedure well. The quality of the bowel preparation was poor, unsatisfactory and not adequate to identify polyps 6 mm and larger in size. Moderate Sedation: Moderate (conscious) sedation was administered by the endoscopy nurse and supervised by the endoscopist. The patient's oxygen saturation, heart rate, blood pressure and response to care were monitored. Total physician intraservice time was 15 minutes. Scope In: 1:14:48 PM Scope Out: 1:23:23 PM Total Procedure Duration Time 0 hours 8 minutes 35 seconds Findings: The perianal and digital rectal examinations were normal. A large amount of stool was found in the rectum, precluding visualization. Estimated blood loss: none. An area of mildly congested mucosa was found in the sigmoid colon. Biopsies were taken with a cold forceps for histology. Impression: - Preparation of the colon was unsatisfactory. - Preparation of the colon was inadequate. - Stool in the rectum. - Congested mucosa in the sigmoid colon. Biopsied. Recommendation: - Discharge patient to home. - Resume previous diet. - Continue present medications. - Await pathology results. - Return to my office. - Repeat colonoscopy in 5 years for surveillance based on pathology results. Procedure Code(s): --- Professional --- 98777, 52, Colonoscopy, flexible; with biopsy, single or multiple 44259, 59, Moderate sedation services provided by the same physician or other qualified health early breastfeeding care specialist performing the diagnostic or therapeutic service that the sedation supports, requiring the presence of an independent trained observer to assist in the monitoring of the patient's level of consciousness and physiological status; initial 15 minutes of intraservice time, patient age 5 years or older CPT copyright 2017 [employer]. All rights reserved. The codes documented in this report are preliminary and upon fax machine repairer review may be revised to meet current compliance requirements. Jcarlos Carrillo DO 04/01/2021 5:49:10 PM This report has been signed electronically. Number of Addenda: 1 Note Initiated On: 04/01/2021 1:02 PM Addendum Number: 1 Addendum Date: 11/01/2021 6:42:48 AM MAC was used for sedation during this procedure. Jcarlos Carrillo DO 11/01/2021 6:42:52 AM This report has been signed electronically.
--- NOTE | 2021-04-01 17:49 | OP.CCLET_ITS ---
11/01/2021 Luz Maria Mills [address] [place] [address] Re : Colonoscopy procedure for Pamela Grimes Dear Dr. Mills This procedure was performed on March. My impressions and recommendations are as follows: Impressions : - Preparation of the colon was unsatisfactory. - Preparation of the colon was inadequate. - Stool in the rectum. - Congested mucosa in the sigmoid colon. Biopsied. Recommendations : - Discharge patient to home. - Resume previous diet. - Continue present medications. - Await pathology results. - Return to my office. - Repeat colonoscopy in 5 years for surveillance based on pathology results. My findings are described in the full procedure note, which is enclosed. If I can be of further assistance, please feel free to contact me at . Sincerely, Jcarlos Carrillo, 04/01/2021 5:49:10 PM This report has been signed electronically.
[2021-04-01] MEDS: oxyCODONE 5 MG Tablet PO (20:06)
[2021-04-02] MEDS: 0.9% Saline Lock 10 ML Syringe IV ×2 (04:59→11:15)
[2021-04-02] MEDS: metroNIDAZOLE 500 MG/100 ML BAG 100 MG IV (05:01)
[2021-04-02 05:06] VITALS: BP 105/64; PULSE 72; RESP 16; TEMP 37.3; O2SAT 96
[2021-04-02 06:08] LABS: Absolute Lymphocyte Count 1.75 X10^3/uL (0.83-4.51); Absolute Neutrophil Count 4.5 X10^3/uL (2.0-7.7); Basophil# 0.04 X10^3/uL; Basophil% 0.6 % (0-1); Eosinophil# 0.18 X10^3/uL; Eosinophils% 2.6 % (0-5); Hematocrit 34.9 % (37-47); Hemoglobin 11.6 g/dL (12.0-15.0); Lymphocyte # 1.75 X10^3/ul (0.83-4.51); Mean Corp Hgb Conc 33.2 g/dL (32-36); Mean Corpuscular Hgb 27.2 pg (27.0-32.0); Mean Corpuscular Volume 81.9 fL (81-99); Mean Platelet Vol. 9.7 fl (6.2-12.0); Monocyte# 0.55 X10^3/uL; Monocyte% 7.9 % (0-10); NRBC Flagged by Analyzer 0 % (0-5); Neutrophil # 4.45 X10^3/uL (2.7-7.7); Neutrophil % 63.6 % (47-70); Platelet Count 248 K/mm3 (150-450); RBC Distribution Width CV 13.4 % (11.6-14.6); RBC Distribution Width SD 39.7 fl (35.1-43.9); Red Blood Count 4.26 M/mm3 (4.2-5.4)
[2021-04-02 06:31] LABS: Anion Gap 6 (5-15); BUN 5 mg/dL (7-18); BUN/Creat Ratio 5.4 RATIO (10-20); Calcium,Total 7.9 mg/dL (8.5-10.1); Chloride 108 mmol/L (98-107); Creatinine, Serum 0.93 mg/dL (0.55-1.02); EST Glomerular Filtration Rate 66 mL/min (>60); Est Glom Filt Rate - Afr Amer 80 mL/min (>60); Estimated Creatinine Clearance 52.79 ml/min; Glucose 95 mg/dL (74-106); Potassium 3.2 mmol/L (3.5-5.1); Sodium Level 142 mmol/L (136-145)
--- NOTE | 2021-04-02 07:06 | PN_ITS ---
Subjective Subjective Patient seen and examined this morning. She is feeling a lot better. Abdominal pain has almost resolved.She denies any cramping, abdominal pain or bleeding per rectum. Objective Data Objective Data Vital Signs: Vital Signs Temp Pulse Resp BP Pulse Ox 99.1 F 72 16 105/64 96 04/02/21 05:06 04/02/21 05:06 04/02/21 05:06 04/02/21 05:06 04/02/21 05:06 Oxygen Delivery Method Room Air Weight: 128 lb 11.999 oz Body Mass Index (BMI) 23.1 Intake & Output: Intake and Output for Last 24 Hours 03/31/21 04/01/21 04/02/21 23:59 23:59 23:59 Intake Total 1420 / 2620 4110.00 / 4110.00 100 / 100 Balance 1420 / 2620 4110.00 / 4110.00 100 / 100 Lab / Micro Data Result Diagrams: 04/02/21 05:46 04/02/21 05:46 Labs: Laboratory Results - last 24 hr 04/01/21 06:37: Sodium 138, Potassium 3.4 L, Chloride 106, Carbon Dioxide 26.0, Anion Gap 6, BUN 6 L, Creatinine 0.78, Estim Creat Clear Calc 62.94, Est GFR (MDRD) Af Amer 98, Est GFR (MDRD) Non-Af 81, BUN/Creatinine Ratio 7.7 L, Glucose 91, Calcium 8.1 L 04/02/21 05:46: WBC 7.0, RBC 4.26, Hgb 11.6 L, Hct 34.9 L, MCV 81.9, MCH 27.2, MCHC 33.2, RDW Std Deviation 39.7, RDW Coeff of Shanika 13.4, Plt Count 248, MPV 9.7, Immature Gran % (Auto) 0.300, Neut % (Auto) 63.6, Lymph % (Auto) 25.0, [place] % (Auto) 7.9, Eos % (Auto) 2.6, Baso % (Auto) 0.6, Absolute Neuts (auto) 4.5, Absolute Lymphs (auto) 1.75, Nucleated RBC % 0 04/02/21 05:46: Sodium 142, Potassium 3.2 L, Chloride 108 H, Carbon Dioxide 28.0, Anion Gap 6, BUN 5 L, Creatinine 0.93, Estim Creat Clear Calc 52.79, Est GFR (MDRD) Af Amer 80, Est GFR (MDRD) Non-Af 66, BUN/Creatinine Ratio 5.4 L, Glucose 95, Calcium 7.9 L Radiography Diagnostic Testing: Radiology Impression Pelvis MRI 04/01/21 15:08 IMPRESSION: Proctitis suspected but no abscess is identified. Electronically Signed: Tono Gandara MD at 2:22 EST , Physical Exam Const alert General Appearance: cooperative Orientation / Consciousness: oriented to person HEENT hearing grossly normal bilaterally Head and Scalp: normal to inspection Face and Sinus: face symmetric Nose: external nose normal Mouth: oral and palatal mucosa normal Eyes conjunctivae normal General Eye: normal appearance of both eyes Neck full ROM General: normal visual inspection Lymph Lymphatic: no lymphadenopathy noted Chest inspection of chest normal and palpation of chest normal Chest: symmetrical chest wall rise Resp normal respiratory effort Effort and Inspection: able to speak in complete sentences Cardio regular rate GI non-distended Percussion: normal to percussion Rectal Exam: deferred Neuro Speech: speech normal Gait (Neuro): normal gait Assessment & Plan Assessment/Plan (1) Stercoral ulcer of anus: PLAN: There is no sign of abscess on the pelvic MRI. On direct visualization she was discovered to have stool encased in her rectum with inflammation and inflammatory changes suggestive of stercoral ulcer resulting in proctitis and local inflammation without abscess. This was confirmed on an MRI. She will need hydrocortisone enemas 1 nightly at home for 14 days (Patient is to lay on her side and hold it as long as possible before evacuating) after she has 2 fleets enemas to remove all in case stool while in the hospital. (2) Proctitis: PLAN: She will need mesalamine 800 mg twice a day for proctitis. This works better with rectal [place] however that is very expensive so we will try oral mesalamine with hydrocortisone enemas. Charges/Coding Visit Charges Inpatient E&M: 44212 Subs Hosp L3
[2021-04-02 09:17] VITALS: BP 116/83; PULSE 69; RESP 18; TEMP 36.7; O2SAT 99
--- NOTE | 2021-04-02 09:24 | PN.SURG_ITS ---
Subjective Subjective Patient reports that she is feeling significantly better today. She is tolerating regular diet without issue. She continues to have looser bowel movements, but these are associated with less discomfort. Objective Data Objective Data Vital Signs: Vital Signs Temp Pulse Resp BP Pulse Ox 98.1 F 69 18 116/83 H 99 04/02/21 09:17 04/02/21 09:17 04/02/21 09:17 04/02/21 09:17 04/02/21 09:17 Oxygen Delivery Method Room Air Weight: 128 lb 11.999 oz Body Mass Index (BMI) 23.1 Intake & Output: Intake and Output for Last 24 Hours 03/31/21 04/01/21 04/02/21 23:59 23:59 23:59 Intake Total 1420 / 2620 4110.00 / 4110.00 100 / 100 Balance 1420 / 2620 4110.00 / 4110.00 100 / 100 Lab / Micro Data Result Diagrams: 04/02/21 05:46 04/02/21 05:46 Labs: Laboratory Results - last 24 hr 04/02/21 05:46: WBC 7.0, RBC 4.26, Hgb 11.6 L, Hct 34.9 L, MCV 81.9, MCH 27.2, MCHC 33.2, RDW Std Deviation 39.7, RDW Coeff of Shanika 13.4, Plt Count 248, MPV 9.7, Immature Gran % (Auto) 0.300, Neut % (Auto) 63.6, Lymph % (Auto) 25.0, [place] % (Auto) 7.9, Eos % (Auto) 2.6, Baso % (Auto) 0.6, Absolute Neuts (auto) 4.5, Absolute Lymphs (auto) 1.75, Nucleated RBC % 0 04/02/21 05:46: Sodium 142, Potassium 3.2 L, Chloride 108 H, Carbon Dioxide 28 .0, Anion Gap 6, BUN 5 L, Creatinine 0.93, Estim Creat Clear Calc 52.79, Est GFR (MDRD) Af Amer 80, Est GFR (MDRD) Non-Af 66, BUN/Creatinine Ratio 5.4 L, Glucose 95, Calcium 7.9 L Radiography Diagnostic Testing: Radiology Impression Pelvis MRI 04/01/21 15:08 IMPRESSION: Proctitis suspected but no abscess is identified. Electronically Signed: Tono Gandara MD at 2:22 EST , Physical Exam Const no apparent distress Resp normal respiratory effort Cardio regular rate GI GI Narrative: Nondistended, soft, only mildly tender to palpation in the left lower quadrant Assessment & Plan Assessment/Plan (1) Acute colitis: PLAN: Abdominal exam significantly improved hospital day 3. Patient underwent colonoscopy with gastroenterology yesterday and was found to have localized inflammation within the sigmoid colon. GI believes patient's presentation to be due to stercoral ulcer. Hydrocortisone and mesalamine has been prescribed. Patient now tolerating regular diet and having bowel movements with less discomfort. -Enemas per GI ?Given clinical improvements, no intervention indicated from surgical standpoint (2) Rectal abscess: PLAN: Pelvic MRI yesterday did not find evidence of perirectal abscess and it appears that the patient's perirectal fluid collection was simply an extension of proctitis. Gastroenterology has prescribed hydrocortisone and mesalamine for resolution of this process. Charges/Coding Visit Charges Inpatient E&M: 80991 Subs Hosp L1
[2021-04-02] MEDS: Menthol/Lanolin/Calamine/Znox 113 GM Tube 1 APPLIC TOPICAL (11:15)
[2021-04-02] MEDS: Potassium Chloride Oral Tablet 20 MEQ 40 MEQ PO (11:15)
--- NOTE | 2021-04-02 11:46 | PCM.DC ---
Discharge Instructions Diet Discharge Diet: No restrictions Activity Discharge Activity: Return to Normal Activity Weight Bearing Status: Weight bearing as tolerated Dressing / Incision Call your doctor if you observe: Fever of 101 or Higher, Numbness or Tingling, Shortness of breath, Dizziness, Chest pain, Increased palpitations (irregular heartbeat) and Calf discomfort Follow Up Care Please Follow Up With: Primary care provider When: Within the next two weeks. Test Results: Test results from this visit will be discussed in further detail at your follow-up appointment, if applicable. Discharge Plan Admission Admit Date/Time: 03/31/21 17:47 Primary Reason for Your Visit: Constipatin with rectal pain. Attending Provider: Guru Aquino Primary Care Provider: Luz Maria Mills Consulting Providers: Ayaz Carlson Discharge Orders/Prescriptions Prescriptions: New ciprofloxacin HCl 500 mg tablet 500 mg PO BID Qty: 10 RF: 0 hydrocortisone [Cortenema] 100 mg/60 mL enema 100 mg [place] QHS Qty: 840 RF: 0 metronidazole 500 mg tablet 500 mg PO Q8H Qty: 15 RF: 0 mesalamine 800 mg tablet,delayed release (DR/EC) 800 mg PO BID Qty: 60 RF: 0 Continued docusate sodium [Colace] 100 mg Capsule 200 mg PO DAILY RF: 0 Referrals / Follow Up: Luz Maria Mills MD [Primary Care Provider] - Within 2 Weeks Jcarlos Carrillo DO [STAFF PHYSICIAN] - Within 2 Weeks Disposition Disposition (needs filled in before D/C Order can be placed): Home, Self Care
--- NOTE | 2021-04-02 12:45 | CASEMGMT ---
RN CM in to pt room, pt lying in bed in no distress. Pt denies any homegoing needs at this time.
[2021-04-02 13:51] VITALS: BP 122/76; PULSE 72; RESP 18; TEMP 37.1; O2SAT 97
[2021-04-02] MEDS: Ciprofloxacin 500 MG Tablet PO (13:53)
--- NOTE | 2021-04-02 14:58 | DS.PCM_ITS ---
Documented by User: Ab LORENZO 04/02/21 15:11 Providers Date of Admission: 03/31/21 Primary Care Physician: Dr. Luz Maria Mills MD Consultations 03/31/21 19:20 Consult: Gastroenterology Routine Consulting Provider: [facility] Reason for Consult: left sided colitis, concern for IBS EMERGENT Consult: No Notified: Yes Date Notified: 03/31/21 Time Notified: 16:00 Method of Notification: Verbal Comments:: Notified by ER physician, Dr. Padron Consult: General Surgery Routine Consulting Provider: Ayaz Carlson Reason for Consult: rectal abscess EMERGENT Consult: No Notified: Yes Date Notified: 03/31/21 Time Notified: 15:00 Method of Notification: Verbal Reason For Visit: RECTAL ABSCESS Diagnosis Discharge Diagnosis (1) Acute colitis: Status: Acute Code(s): K52.9 - Noninfective gastroenteritis and colitis, unspecified (2) Rectal abscess: Status: Acute Code(s): K61.1 - Rectal abscess Medications at Discharge Home Medications docusate sodium [Colace] 200 mg PO DAILY 03/31/21 ciprofloxacin HCl 500 mg PO BID #10 tab 04/02/21 hydrocortisone [Cortenema] 100 mg [place] QHS #840 ml 04/02/21 mesalamine 800 mg PO BID #60 tab 04/02/21 metronidazole 500 mg PO Q8H #15 tab 04/02/21 Hospital Course Procedures Colonoscopy Summary of Care Provided Minutes Spent on Discharge: 20 Hospital Course: Patient is a 56-year-old female who was admitted to [facility] on 03/31/2021 for evaluation and management of constipation and rectal pain with bleeding. Course and management as below. 1) Rectal abscess CT of the abdomen on admission demonstrated a 1.9 x 2.5 cm fluid collection in the region of the anal verge at the level of perineum. Colonoscopy obtained on 04/01 demonstrated stool in the rectum with inflammatory changes suggestive of stercoral ulcer resulting in proctitis. No abscess was seen on colonoscopy or on MRI. General surgery recommendations are to continue with antibiotic, not a candidate for incision and drainage at this time due to difficulty in the approach. Recommendations from GI are to complete hydrocortisone enema nightly for 14 days and follow-up within the next 2 weeks. Patient was continued on ciprofloxacin and Flagyl on discharge for another 5 days to complete 7-day course. 2) Acute colitis CT abdomen shows colitis of left hemicolon with moderate fecal matter. Colonoscopy results as above, GI recommendations are to initiate mesalamine 800 mg twice daily and to follow-up within the next 2 weeks. 3) hypokalemia Replaced. Patient seen by Ab Bernabe PA-C, under the supervision of Dr. Aquino. Time spent on patient care: 20 minutes. Physical Exam Narrative Patient is a 56-year-old female comfortably resting in bed, alert and orient x3. Patient denies development of any new symptoms overnight. Does not appear in acute distress. Const alert, oriented x3 and no apparent distress HEENT normocephalic, head/scalp atraumatic and hearing grossly normal bilaterally Eyes PERRL and conjunctivae normal Neck no lymphadenopathy, supple and no JVD Resp normal respiratory effort, no retractions and no use of accessory muscles Cardio regular rate, regular rhythm and no JVD GI normal to inspection, nondistended, normoactive bowel sounds Palpation: tender Extremity normal to inspection Skin no rashes or lesions noted Neuro CN's II-XII intact bilaterally Psych affect normal Weight / BMI Weight Weight: 128 lb 11.999 oz Body Mass Index (BMI) 23.1 ABG / Lab / Microbiology Data Result Diagrams: 04/02/21 05:46 04/02/21 05:46 Laboratory: Laboratory Results - last 24 hr 04/02/21 05:46: WBC 7.0, RBC 4.26, Hgb 11.6 L, Hct 34.9 L, MCV 81.9, MCH 27.2, MCHC 33.2, RDW Std Deviation 39.7, RDW Coeff of Shanika 13.4, Plt Count 248, MPV 9.7, Immature Gran % (Auto) 0.300, Neut % (Auto) 63.6, Lymph % (Auto) 25.0, [place] % (Auto) 7.9, Eos % (Auto) 2.6, Baso % (Auto) 0.6, Absolute Neuts (auto) 4.5, Absolute Lymphs (auto) 1.75, Nucleated RBC % 0 04/02/21 05:46: Sodium 142, Potassium 3.2 L, Chloride 108 H, Carbon Dioxide 28.0, Anion Gap 6, BUN 5 L, Creatinine 0.93, Estim Creat Clear Calc 52.79, Est GFR (MDRD) Af Amer 80, Est GFR (MDRD) Non-Af 66, BUN/Creatinine Ratio 5.4 L, Glucose 95, Calcium 7.9 L Radiography Diagnostic Testing: Radiology Impression Pelvis MRI 04/01/21 15:08 IMPRESSION: Proctitis suspected but no abscess is identified. Electronically Signed: Tono Gandara MD at 2:22 EST Reading Location ID and State: [facility] / [place] Tel , Service support , D/C Instructions Discharge Diet: No restrictions Weight Bearing Status: Weight bearing as tolerated Call your doctor if you observe: Fever of 101 or Higher, Numbness or Tingling, Shortness of breath, Dizziness, Chest pain, Increased palpitations (irregular heartbeat) and Calf discomfort Please Follow Up With: Primary care provider When: Within the next two weeks. Meaningful Use Info Meaningful Use Diagnoses (Choose all that apply): None applicable Discharge Plan Admission Admit Date/Time: 03/31/21 17:47 Primary Reason for Your Visit: Constipatin with rectal pain. Attending Provider: Guru Aquino Primary Care Provider: Luz Maria Mills Consulting Providers: Ayaz Carlson Discharge Orders/Prescriptions Prescriptions: New ciprofloxacin HCl 500 mg tablet 500 mg PO BID Qty: 10 RF: 0 hydrocortisone [Cortenema] 100 mg/60 mL enema 100 mg [place] QHS Qty: 840 RF: 0 metronidazole 500 mg tablet 500 mg PO Q8H Qty: 15 RF: 0 mesalamine 800 mg tablet,delayed release (DR/EC) 800 mg PO BID Qty: 60 RF: 0 Continued docusate sodium [Colace] 100 mg Capsule 200 mg PO DAILY RF: 0 Referrals / Follow Up: Luz Maria Mills MD [Primary Care Provider] - Within 2 Weeks Jcarlos Carrillo DO [STAFF PHYSICIAN] - Within 2 Weeks Disposition Disposition (needs filled in before D/C Order can be placed): Home, Self Care Documented by User: Dr. Guru Aquino DO 04/02/21 16:10 Providers Date of Admission: 03/31/21 Reason For Visit: RECTAL ABSCESS Medications at Discharge Home Medications docusate sodium [Colace] 200 mg PO DAILY 03/31/21 ciprofloxacin HCl 500 mg PO BID #10 tab 04/02/21 hydrocortisone [Cortenema] 100 mg AK QHS #840 ml 04/02/21 mesalamine 800 mg PO BID #60 tab 04/02/21 metronidazole 500 mg PO Q8H #15 tab 04/02/21 Hospital Course Operations None Procedures None Summary of Care Provided Minutes Spent on Discharge: 20 Hospital Course: This is a 56-year-old female presents with rectal drainage. Patient was found to have a rectal abscess on imaging. Patient was seen by general surgery and even the narrow caliber and location it would not be easily amenable to surgery and recommended conservative measures with antibiotics. Patient was noted to have colitis and patient underwent a colonoscopy on the . Unfortunately the colonoscopy prep was insufficient patient did have a lot of stool still present. Gastroenterology recommended hydrocortisone enemas nightly for the next 2 weeks. And patient has been started on mesalamine twice daily for proctitis. She will follow up with Dr. Carrillo as outpatient for eventual repeat endoscopy. Additionally, patient will continue with antibiotics for the rectal abscess. Physical Exam Const alert and no apparent distress Resp normal respiratory effort GI normal to inspection, nondistended, normoactive bowel sounds, soft to palpation, non-tender and non-distended Neuro oriented x3 Sensorium / Orientation: awake, alert and oriented to person ABG / Lab / Microbiology Data Result Diagrams: 04/02/21 05:46 04/02/21 05:46 Discharge Plan Admission Admit Date/Time: 03/31/21 17:47 Primary Reason for Your Visit: Constipatin with rectal pain. Attending Provider: Guru Aquino Primary Care Provider: Luz Maria Mills Consulting Providers: Ayaz Carlson Discharge Orders/Prescriptions Prescriptions: New ciprofloxacin HCl 500 mg tablet 500 mg PO BID Qty: 10 RF: 0 hydrocortisone [Cortenema] 100 mg/60 mL enema 100 mg [place] QHS Qty: 840 RF: 0 metronidazole 500 mg tablet 500 mg PO Q8H Qty: 15 RF: 0 mesalamine 800 mg tablet,delayed release (DR/EC) 800 mg PO BID Qty: 60 RF: 0 Continued docusate sodium [Colace] 100 mg Capsule 200 mg PO DAILY RF: 0 Referrals / Follow Up: Luz Maria Mills MD [Primary Care Provider] - Within 2 Weeks Jcarlos Carrillo DO [STAFF PHYSICIAN] - Within 2 Weeks Disposition Disposition (needs filled in before D/C Order can be placed): Home, Self Care Charges/Coding Visit Charges Inpatient E&M: 33838 Disch Hosp
== END 2021-04-02 14:08 | disposition home or self-care (01) | DRG 395 ==
LOC: ED 13:12 → MS3 18:07
PROVIDERS: Internal Medicine Gastroenterology; Physician Assistant; Admitting Provider Internal Medicine; Emergency Provider Emergency Medicine; PCP Internal Medicine; Referring Provider Internal Medicine
PROC: 0DJD8ZZ Inspection of Lower Intestinal Tract, Via Natural or Artificial Opening Endoscopic (ICD-10-PCS; CPT 45378; principal; 2021-04-01 12:25)
DX: K62.6 Ulcer of anus and rectum (principal); E87.6 Hypokalemia; K62.89 Other specified diseases of anus and rectum; K52.9 Noninfective gastroenteritis and colitis, unspecified; Z79.899 Other long term (current) drug therapy
CPT/HCPCS: 36415; 72197; 74177; 80048; 80076; 81001; 83735; 85025; 87040; 88305; 99251; 99284; A9575; J2185; J7030; J7050; J7120; Q9967; A4216; G0463; J0744; J2405

== ENCOUNTER 2021-06-22 12:25 | Day surgery (SDC) | payer BC, SELFPAY ==
[2021-06-22] MEDS: Lactated Ringers 1,000 ML 15 ML IV (12:40)
[2021-06-22 12:53] VITALS: BP 122/82; PULSE 65; RESP 17; TEMP 36.9; O2SAT 99; BMI 23.8
--- NOTE | 2021-06-22 13:19 | HP.PCM_ITS ---
History and Physical Date of Admission: 06/22/21 NIXON HULL, is a 56 F who presents to the office today for f/u hospitalization 03/31/21-04/02/21 for proctitis and hemicolitis. She presented to ED w/ abd/rectal pain. Due to constipation and stool in rectum she developed stercoral ulcer which caused proctitis w/o abscess. CT showed colitis of left hemicolon. She was discharged on flagyl and cipro which she completed. She completed 14 days of hydrocortisone enemas. She is on mesalamine 800 mg BID. She is taking miralax daily as well as docusate sodium. Doing very well on this regimen. No pain at all since hospitalization. Has been having a BM daily. BM x 2 yesterday, no pain with BM at all since hospitalization. No BM yet today. She had covid in February. since then she has sensation of food sticking in throat, sometimes hears a gurgling in her throat. Has heartburn which is mostly controlled with omeprazole but uses TUMS prn in addition. Took a short course of prednisone this last week for neck pain, thirsty on the prednisone. She will be having carpal tunnel surgery in 3 wks, gabapentin and naproxen will be prescribed for that ROS Const Constitutional: Positive for headache(s); No fatigue, fever(s), weight change, sleep problems, abnormal sleep pattern or change in appetite ENT ENT: Positive for headache(s); No difficulty swallowing, hoarseness or sore throat Resp Respiratory: No cough, hemoptysis or shortness of breath Cardio Cardiology: No chest pain at rest or generalized swelling Gastro GI: Positive for heartburn; No abdominal pain, belching, bloating, change in bowel habits, change in stool character, coffee ground emesis, constipation, cramping, diarrhea, difficulty swallowing, feeling full early, excessive flatus, incontinent of stools, Vomiting blood/hematemesis, Blood in stool, loose stools, Black,tarry stools, nausea/dyspepsia, pain with swallowing or vomiting Musc Musculoskeletal: No joint pain, back pain, joint swelling, numbness or tingling Skin Skin: No itchy eyes or rash Neuro Neurology: Positive for headache(s); No behavioral changes, confusion, numbness or tingling Psych Psychiatric: No abnormal sleep pattern, No anxiety, No behavioral changes, No change in appetite, No confusion and No depression Endo Endocrine: Positive for increased thirst/drinking and increased urine leakage; No cold intolerance, fatigue, heat intolerance or weight change Aller/Imm Allergy/Immunologic: No food intolerance or itchy eyes Lc/Lymp Hematologic/Lymphatic: No easy bleeding, easy bruising or enlarged lymph nodes Exam Const General: cooperative, healthy appearing, comfortable, no acute distress, well developed and well groomed GI Inspection: normal to inspection Auscultation: normal bowel sounds Percussion: normal to percussion Palpation: soft and nontender Quality Reporting Tobacco Screening ([facility] 138) Smoking Status: Never smoker Assessment and Plan Assessment and Plan (1) Stercoral ulcer of anus: Status: Acute (2) Proctitis: Status: Acute (3) GERD (gastroesophageal reflux disease): Status: Acute (4) Dysphagia: Status: Acute Plan: Continue mesalamine 800 mg bid for 3 mos then we'll taper off Continue daily miralax and docusate, needs to have BM daily and keep stool soft Continue PPI. She will be scheduled for EGD in June, with 2 wk f/u after that appt, we can taper mesalamine then Plan Details Other Medications: Refilled: mesalamine must be taken on empty stomach; no food 1 hr after or 2-3 hrs before dose 800 mg PO BID 120 tabs 0RF I have re-examined the patient. There are no clinical changes since date of exam.
--- NOTE | 2021-06-22 13:30 | EGD_PTH ---
PATIENT: NIXON HULL LOC: [facility] U#:[id number] AGE/SX: 56/F ROOM: RE06/22/[address]: Dr. Jcarlos Carrillo DO : 1965 BED: DIS: 06/22/2021 SPEC #: [id number] RECD: 06/22/21 16:19 STATUS: BRIDGET LAKISHA #: [id number] LEOPOLDO: 06/22/21 13:[address]: Jcarlos Carrillo DEPT: SURGICAL PATHOLOGY RECD BY: Quin Pérez ENTERED: 06/23/21 09:43 SP TYPE: EGD BIOPSY OT DR: Dr. Luz Maria Mills MD Tissues: A - Esophagus, NOS B - Gastric mucous membrane Procedures: Special Stain Group II Surgery Specimen Level IV Alcian Blue/PAS (control) HEADER OPERATION: [place] [place] with biopsy and dilation PRE-OP DIAGNOSIS: GERD, dysphagia TISSUE SUBMITTED: A ? Distal esophagus biopsy, B ? Gastric ulcer MICROSCOPIC DIAGNOSIS A. Distal esophagus, biopsy: Fragments of gastric mucosa with chronic inflammation. 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 See comment. B. Gastric ulcer, biopsy: Fragments of gastric mucosa with focal ulceration, acute and chronic inflammation and reactive changes. See comment. SJ:rg 06/24/2021 COMMENT A. Alcian blue/PAS stain with matched control is used in the evaluation of the specimen. B. The results of immunohistochemistry for Helicobacter pylori will be reported separately ([id number]). MICROSCOPIC DESCRIPTION Slides are reviewed. GROSS DESCRIPTION A - Received in fixative is one container labeled with the patient's name and designated distal esophagus. The specimen consists of two irregular fragments of light hicks soft tissue that in aggregate measure 0.6 x 0.3 x 0.1 cm. The specimen is totally submitted in one cassette. B - Received in fixative is one container labeled with the patient's name and designated gastric ulcer. The specimen consists of two irregular fragments of light hicks soft tissue that in aggregate measure 0.6 x 0.3 x 0.1 cm. The specimen is totally submitted in one cassette. / SJ:catrachito 06/23/2021 TC:2 CPT: 75203 x2, 15765
--- NOTE | 2021-06-22 13:30 | IMM_PTH ---
PATIENT: NIXON HULL LOC: [facility] U#:[id number] AGE/SX: 56/F ROOM: RE06/22/[address]: Dr. Jcarlos Carrillo DO : 1965 BED: DIS: 06/22/2021 SPEC #: [id number] RECD: 06/23/21 09:19 STATUS: BRIDGET REConrad #: [id number] LEOPOLDO: 06/22/21 13:[address]: Jcarlos Carrillo DEPT: IMMUNOHISTOCHEMISTRY RECD BY: Nicole Gaxiola ENTERED: 06/23/21 09:20 SP TYPE: IMMUNO OTHR DR: Dr. Luz Maria Mills MD Tissues: B - Stomach, NOS Procedures: H Pylori (initial) PHYSICIAN & INSTITUTION [place] [address] SPECIMEN INFORMATION: Tissue Source: B ? Gastric ulcer Clinical Info: GERD, dysphagia Specimen Number: [id number] CPT code: 09313 METHODOLOGY: Deparaffinized sections of prefer/formalin-fixed tissue or PAP/DQ stained slides are incubated with monoclonal/polyclonal antibodies/oligonucleotide probes. Localization is made via biotin free immunoperoxidase method. Appropriate controls are performed and reacted as expected. Results on target cell population are indicated in the following table: RESULTS: ANTIBODY / CLONE RESULT Block B H Pylori (polyclonal) negative These tests were developed and their performance characteristics determined by [facility]. They may not have been cleared or approved by the U.S. Food and Drug Administration. The FDA has determined that such clearance or approval is not necessary. The above immunohistochemical/dualISH markers are ordered and reviewed by the Pathologist. INTERPRETATION: B. Gastric ulcer, biopsy: Negative for Helicobacter pylori organisms. SJ:catrachito 06/24/2021
[2021-06-22 13:50] VITALS: BP 113/80; BP 122/82; PULSE 77; RESP 14; TEMP 36.7; O2SAT 100
[2021-06-22 13:55] VITALS: BP 103/76; BP 122/82; PULSE 69; RESP 14; O2SAT 100
--- NOTE | 2021-06-22 13:56 | OP.EGD_ITS ---
Patient Name: Pamela Grimes Procedure Date: 06/22/2021 1:22 PM Date of : 1965 Age: 56 Procedure: Upper GI endoscopy Indications: Dysphagia, Heartburn Providers: Jcarlos Carrillo DO Medicines: Monitored Anesthesia Care Patient Profile: This is a 56 year old female. Refer to note in patient chart for documentation of history and physical. Patient has symptoms of chronic dysphagia and dysphagia with solids. Complications: No immediate complications. Procedure: Pre-Anesthesia Assessment: - Prior to the procedure, a History and Physical was performed, and patient medications and allergies were reviewed. The risks and benefits of the procedure and the sedation options and risks were discussed with the patient. All questions were answered and informed consent was obtained. Patient identification and proposed procedure were verified by the physician in the pre-procedure area. Mental Status Examination: alert and oriented. Airway Examination: normal oropharyngeal airway and neck mobility. Respiratory Examination: clear to auscultation. CV Examination: normal. Prophylactic Antibiotics: The patient does not require prophylactic antibiotics. Prior Anticoagulants: The patient has taken no previous anticoagulant or antiplatelet agents. After reviewing the risks and benefits, the patient was deemed in satisfactory condition to undergo the procedure. The anesthesia plan was to use moderate sedation / analgesia (conscious sedation). Immediately prior to administration of medications, the patient was re-assessed for adequacy to receive sedatives. The heart rate, respiratory rate, oxygen saturations, blood pressure, adequacy of pulmonary ventilation, and response to care were monitored throughout the procedure. The physical status of the patient was re-assessed after the procedure. After obtaining informed consent, the endoscope was passed under direct vision. Throughout the procedure, the patient's blood pressure, pulse, and oxygen saturations were monitored continuously. The gastroscope was introduced through the mouth, and advanced to the second part of duodenum. The upper GI endoscopy was accomplished without difficulty. The patient tolerated the procedure well. Scope In: 1:34:36 PM Scope Out: 1:45:14 PM Total Procedure Duration Time 0 hours 10 minutes 38 seconds Findings: Mucosal changes including circumferential folds were found in the middle third of the esophagus. Esophageal findings were graded using the Eosinophilic Esophagitis Endoscopic Reference Score (EoE-EREFS) as: Edema Grade 0 Normal (distinct vascular markings), Rings Grade 1 Mild (subtle circumferential ridges seen on esophageal distension), Exudates Grade 0 None (no white lesions seen), Furrows Grade 1 Present (vertical lines with or without visible depth) and Stricture none (no stricture found). The Z-line was irregular and was found 38 cm from the incisors. One non-bleeding cratered gastric ulcer with no stigmata of bleeding was found in the gastric antrum. The lesion was 4 mm in largest dimension. Biopsies were taken with a cold forceps for histology. Verification of patient identification for the specimen was done. Estimated blood loss was minimal. The second portion of the duodenum was normal. A moderate Schatzki ring was found in the lower third of the esophagus. A guidewire was placed and the scope was withdrawn. Dilation was performed with a Savary dilator with no resistance at 60 Fr. The dilation site was examined following endoscope reinsertion and showed moderate improvement in luminal narrowing. Estimated blood loss was minimal. Impression: - Esophageal mucosal changes consistent with eosinophilic esophagitis. - Z-line irregular, 38 cm from the incisors. - Non-bleeding gastric ulcer with no stigmata of bleeding. Biopsied. - Normal second portion of the duodenum. - Moderate Schatzki ring. Dilated. Recommendation: - Discharge patient to home. - Resume previous diet. - Continue present medications. - Await pathology results. - Return to GI office. Procedure Code(s): --- Professional --- 11407, Esophagogastroduodenoscopy, flexible, transoral; with insertion of guide wire followed by passage of dilator(s) through esophagus over guide wire 40641, 59, Esophagogastroduodenoscopy, flexible, transoral; with biopsy, single or multiple CPT copyright 2017 [employer]. All rights reserved. The codes documented in this report are preliminary and upon quantitative analyst review may be revised to meet current compliance requirements. Jcarlos Carrillo DO 06/22/2021 1:55:51 PM This report has been signed electronically. Number of Addenda: 1 Note Initiated On: 06/22/2021 1:22 PM Addendum Number: 1 Addendum Date: 11/12/2021 6:24:48 AM MAC was used as sedation for this procedure. Jcarlos Carrillo DO 11/12/2021 6:24:52 AM This report has been signed electronically.
--- NOTE | 2021-06-22 13:57 | OP.CCLET_ITS ---
11/12/2021 Luz Maria Mills [address] [place] [address] Re : Upper GI endoscopy procedure for Pamela Grimes Dear Dr. Mills This procedure was performed on Tuesday, June 22, 2021. My impressions and recommendations are as follows: Impressions : - Esophageal mucosal changes consistent with eosinophilic esophagitis. - Z-line irregular, 38 cm from the incisors. - Non-bleeding gastric ulcer with no stigmata of bleeding. Biopsied. - Normal second portion of the duodenum. - Moderate Schatzki ring. Dilated. Recommendations : - Discharge patient to home. - Resume previous diet. - Continue present medications. - Await pathology results. - Return to GI office. My findings are described in the full procedure note, which is enclosed. If I can be of further assistance, please feel free to contact me at . Sincerely, Jcarlos Carrillo, 06/22/2021 1:55:51 PM This report has been signed electronically.
[2021-06-22 14:00] VITALS: BP 122/82; BP 123/87; PULSE 66; RESP 14; O2SAT 100
[2021-06-22 14:06] VITALS: BP 121/81; BP 122/82; PULSE 60; RESP 14; TEMP 36.4; O2SAT 100
== END 2021-06-22 15:07 | disposition home or self-care (01) ==
LOC: EN 12:26 → AC 12:28
PROVIDERS: PCP Internal Medicine; Referring Provider Internal Medicine; Visit Provider Internal Medicine Gastroenterology
PROC: 0DJ08ZZ Inspection of Upper Intestinal Tract, Via Natural or Artificial Opening Endoscopic (ICD-10-PCS; CPT 43235; principal; 2021-06-22 13:25)
DX: K22.2 Esophageal obstruction (principal); K25.9 Gastric ulcer, unspecified as acute or chronic, without hemorrhage or perforation; K21.9 Gastro-esophageal reflux disease without esophagitis; R13.10 Dysphagia, unspecified; K62.6 Ulcer of anus and rectum; K62.89 Other specified diseases of anus and rectum; Z86.16 Personal history of COVID-19
CPT/HCPCS: 43248; 43239; 88305; 88313; 88342; J7120; C1769; J2405

== ENCOUNTER 2021-10-05 12:02 | Day surgery (SDC) | payer BC, SELFPAY ==
--- NOTE | 2021-10-05 12:18 | HP.PCM_ITS ---
History and Physical Date of Admission: 10/05/21 NIXON HULL, is a 56 F who presents to the office today for discussion of recent EGD findings and biopsy results.? He was performed due to dysphagia and GERD not fully controlled with PPI therapy. She established with this office while hospitalized in March 2021 for proctitis, hemicolitis.? She had presented to the ED with abdominal and rectal pain.? Due to constipation and stool in the rectum she developed a stercoral ulcer which caused proctitis without abscess.? CT showed colitis of the left hemicolon. She was discharged on flagyl and cipro which she completed. She also completed 14 days of hydrocortisone enemas. She completed the course of mesalamine. She had bloating from the miralax. She remains on the stool softener. Has a BM at least every other day. No straining, no pain with BMs. After having COVID in February 2021 she developed to the sensation of food sticking in throat--the dysphagia has improved since Friend dilated moderate Schatzki ring in the esophagus. Has heartburn which is mostly controlled with omeprazole but uses TUMS prn in addition. 06/22/2021 EGD Impression: ? - Esophageal mucosal changes consistent with ? eosinophilic esophagitis. ? - Z-line irregular, 38 cm from the incisors. ? - Non-bleeding gastric ulcer with no stigmata ? of bleeding. Biopsied. ? - Normal second portion of the duodenum. ? - Moderate Schatzki ring. Dilated. MICROSCOPIC DIAGNOSIS A.? Distal esophagus, biopsy:Fragments of gastric mucosa with chronic inflammation.Rare cells with intestinal metaplasia (goblet cell metaplasia).See comment. B.? Gastric ulcer, biopsy:Fragments of gastric mucosa with focal ulceration, acute and chronic inflammation and reactive changes.See comment. Negative H. pylori ROS Const Constitutional: No fatigue ENT ENT: No difficulty swallowing Gastro GI: Positive for bloating, excessive flatus and nausea/dyspepsia; No abdominal pain, belching, change in bowel habits, change in stool character, coffee ground emesis, constipation, cramping, diarrhea, heartburn, difficulty swallowing, feeling full early, incontinent of stools, Vomiting blood/hematemesis, Blood in stool, loose stools, Black,tarry stools, pain with swallowing, vomiting or other Musc Musculoskeletal: No joint pain Skin Skin: No yellowing of the eye or itchy eyes Psych Psychiatric: No anxiety and No depression Endo Endocrine: No fatigue Aller/Imm Allergy/Immunologic: No itchy eyes Lc/Lymp Hematologic/Lymphatic: No easy bleeding or easy bruising Exam Const General: cooperative, healthy appearing, well developed and well groomed Quality Reporting Tobacco Screening ([facility] 138) Smoking Status: Never smoker Assessment and Plan Assessment and Plan (1) GERD (gastroesophageal reflux disease): ?Status:?Acute (2) Barretts esophagus: ?Status:?Acute (3) Gastric ulcer: ?Status:?Acute (4) Stercoral ulcer of anus: ?Status:?Acute ?Plan - [place] COOK 3 PASTRY, COOK 3 PASTRY-C: 56-year-old female with dysphagia, GERD, new diagnosis of Castellanos's esophagus, gastric ulcer, history of stercoral ulcer of anus.? We reviewed the findings from her recent EGD and the biopsy results.? Esophagus had the appearance of eosinophilic esophagitis.? There were rare cells consistent with Castellanos's esophagus.? Dr. Carrillo dilated a moderate Schatzki ring.? She does report improved ability to swallow without feeling like food is getting stuck since the dilation.? For the gastric ulcer she has been prescribed liquid sucralfate 3 times daily before meals x1 month and her PPI was increased to twice daily dosing x8 weeks and then decrease back down to once daily dosing in the morning.? We discussed that she will need to remain on lifetime PPI therapy for Castellanos's esophagus.? She will need repeat EGD to ensure healing of the gastric ulcer.? That will be scheduled as well as 2-week follow-up to review biopsy results.? Bowels are moving much more regularly compared to before she was diagnosed with a stercoral ulcer; she continues on stool softener but was unable to tolerate the MiraLAX, she can try prunes or kiwi supplement in order to try to have a daily bowel movement. I have re-examined the patient. There are no clinical changes since date of exam.
[2021-10-05 12:32] VITALS: BP 139/94; PULSE 72; RESP 16; TEMP 36.6; O2SAT 100; BMI 23.3
[2021-10-05] MEDS: Lactated Ringers 1,000 ML 15 ML IV (12:35)
--- NOTE | 2021-10-05 13:15 | EGD_PTH ---
PATIENT: NIXON HULL LOC: [facility] U#:[id number] AGE/SX: 56/F ROOM: RE10/05/[address]: Dr. Jcarlos Carrillo DO : 1965 BED: DIS: 10/05/2021 SPEC #: [id number] RECD: 10/05/21 16:49 STATUS: BRIDGET LAKISHA #: [id number] LEOPOLDO: 10/05/21 13:[address]: Jcarlos Carrillo DEPT: SURGICAL PATHOLOGY RECD BY: Candi Umana ENTERED: 10/06/21 11:14 SP TYPE: EGD BIOPSY DARNELL DR: Dr. Luz Maria Mills MD Tissues: Gastric mucous membrane Procedures: Surgery Specimen Level IV HEADER O[place] [place] DIAGNOSIS: GERD, Castellanos?s esophagus TISSUE SUBMITTED: Antrum biopsy MICROSCOPIC DIAGNOSIS Antrum, biopsy: Moderate gastritis. See microscopic description and comment. YOLI:catrachito 10/07/2021 COMMENT The results of immunohistochemistry for Helicobacter pylori will be reported separately ([id number]). MICROSCOPIC DESCRIPTION Slides are reviewed. The specimen shows fragments of gastric mucosa with chronic inflammatory cell infiltrates in the lamina propria consisting of lymphocytes and plasma cells, consistent with moderate chronic gastritis. GROSS DESCRIPTION Received in fixative is one container labeled with the patient's name and designated antrum biopsy. The specimen consists of two irregular fragments of light hicks soft tissue that in aggregate measure 0.7 x 0.5 x 0.1 cm. The specimen is totally submitted in one cassette. / AM:catrachito 10/06/2021 TC: CPT: 10825
--- NOTE | 2021-10-05 13:15 | IMM_PTH ---
PATIENT: NIXON HULL LOC: [facility] U#:[id number] AGE/SX: 56/F ROOM: RE10/05/[address]: Dr. Jcarlos Carrillo DO : 1965 BED: DIS: 10/05/2021 SPEC #: [id number] RECD: 10/06/21 12:32 STATUS: BRIDGET LAKISHA #: [id number] LEOPOLDO: 10/05/21 13:[address]: Jcarlos Carrillo DEPT: IMMUNOHISTOCHEMISTRY RECD BY: Nicole Gaxiola ENTERED: 10/06/21 12:32 SP TYPE: IMMUNO OTHR DR: Dr. Luz Maria Mills MD Tissues: Stomach, NOS Procedures: H Pylori (initial) PHYSICIAN & INSTITUTION [place] [address] SPECIMEN INFORMATION: Tissue Source: Antrum biopsy Clinical Info: GERD, Castellanos?s esophagus, gastric ulcer Specimen Number: [id number] CPT code: 80795 METHODOLOGY: Deparaffinized sections of prefer/formalin-fixed tissue or PAP/DQ stained slides are incubated with monoclonal/polyclonal antibodies/oligonucleotide probes. Localization is made via biotin free immunoperoxidase method. Appropriate controls are performed and reacted as expected. Results on target cell population are indicated in the following table: RESULTS: ANTIBODY / CLONE RESULT H Pylori (polyclonal) negative These tests were developed and their performance characteristics determined by [facility]. They may not have been cleared or approved by the U.S. Food and Drug Administration. The FDA has determined that such clearance or approval is not necessary. The above immunohistochemical/dualISH markers are ordered and reviewed by the Pathologist. INTERPRETATION: Antrum biopsy: Negative for Helicobacter pylori organisms. SJ:catrachito 10/07/2021
[2021-10-05 13:49] VITALS: BP 113/79; BP 139/94; PULSE 82; RESP 20; TEMP 36.8; O2SAT 99
[2021-10-05 13:50] VITALS: BP 116/85; BP 139/94; PULSE 79; RESP 18; O2SAT 100
[2021-10-05 13:55] VITALS: BP 106/77; BP 139/94; PULSE 77; RESP 18; O2SAT 99
--- NOTE | 2021-10-05 13:57 | OP.EGD_ITS ---
Patient Name: Pamela Grimes Procedure Date: 10/05/2021 1:29 PM Date of : 1965 Age: 56 Procedure: Upper GI endoscopy Indications: Epigastric abdominal pain, Peptic ulcer Providers: Jcarlos Carrillo DO Medicines: Monitored Anesthesia Care Patient Profile: This is a 56 year old female. Refer to note in patient chart for documentation of history and physical. Patient has symptoms. Complications: No immediate complications. Procedure: Pre-Anesthesia Assessment: - Prior to the procedure, a History and Physical was performed, and patient medications and allergies were reviewed. The risks and benefits of the procedure and the sedation options and risks were discussed with the patient. All questions were answered and informed consent was obtained. Patient identification and proposed procedure were verified by the physician in the pre-procedure area. Mental Status Examination: alert and oriented. Airway Examination: normal oropharyngeal airway and neck mobility. Respiratory Examination: clear to auscultation. CV Examination: normal. Prophylactic Antibiotics: The patient does not require prophylactic antibiotics. Prior Anticoagulants: The patient has taken no previous anticoagulant or antiplatelet agents. ASA Grade Assessment: II - A patient with mild systemic disease. After reviewing the risks and benefits, the patient was deemed in satisfactory condition to undergo the procedure. The anesthesia plan was to use moderate sedation / analgesia (conscious sedation). Immediately prior to administration of medications, the patient was re-assessed for adequacy to receive sedatives. The heart rate, respiratory rate, oxygen saturations, blood pressure, adequacy of pulmonary ventilation, and response to care were monitored throughout the procedure. The physical status of the patient was re-assessed after the procedure. After obtaining informed consent, the endoscope was passed under direct vision. Throughout the procedure, the patient's blood pressure, pulse, and oxygen saturations were monitored continuously. The was introduced through the mouth, and advanced to the second part of duodenum. The upper GI endoscopy was accomplished without difficulty. The patient tolerated the procedure well. Scope In: 1:39:22 PM Scope Out: 1:44:12 PM Total Procedure Duration Time 0 hours 4 minutes 50 seconds Findings: The esophagus and gastroesophageal junction were examined with white light from a forward view and retroflexed position. 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 These changes involved the mucosa at the upper extent of the gastric folds (41 cm from the incisors) extending to the Z-line (38 cm from the incisors). [place]-colored mucosa was present. The maximum longitudinal extent of these esophageal mucosal changes was 3 cm in length. A small hiatal hernia was present. The entire examined stomach was normal. Biopsies were taken with a cold forceps for histology. Verification of patient identification for the specimen was done. Estimated blood loss was minimal. The second portion of the duodenum was normal. 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 - Small hiatal hernia. - Normal stomach. Biopsied. - Normal second portion of the duodenum. Recommendation: - Discharge patient to home. - Resume previous diet. - Continue present medications. - Await pathology results. Procedure Code(s): --- Professional --- 43251, Esophagogastroduodenoscopy, flexible, transoral; with biopsy, single or multiple CPT copyright 2017 [employer]. All rights reserved. The codes documented in this report are preliminary and upon rn clinical appeals review may be revised to meet current compliance requirements. Jcarlos Carrillo DO 10/05/2021 1:57:35 PM This report has been signed electronically. Number of Addenda: 1 Note Initiated On: 10/05/2021 1:29 PM Addendum Number: 1 Addendum Date: 11/18/2021 6:07:12 AM MAC was used as sedation for this procedure. Jcarlos Carrillo DO 11/18/2021 6:07:21 AM This report has been signed electronically.
--- NOTE | 2021-10-05 13:58 | OP.CCLET_ITS ---
11/18/2021 Luz Maria Mills [address] [place] [address] Re : Upper GI endoscopy procedure for Pamela Grimes Dear Dr. Mills This procedure was performed on Tuesday, October 05, 2021. 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 - Small hiatal hernia. - Normal stomach. Biopsied. - Normal second portion of the duodenum. Recommendations : - Discharge patient to home. - Resume previous diet. - Continue present medications. - Await pathology results. My findings are described in the full procedure note, which is enclosed. If I can be of further assistance, please feel free to contact me at . Sincerely, Jcarlos Carrillo, 10/05/2021 1:57:35 PM This report has been signed electronically.
[2021-10-05 14:00] VITALS: BP 120/93; BP 139/94; PULSE 76; RESP 18; TEMP 36.7; O2SAT 100
[2021-10-05 14:21] VITALS: BP 139/94
== END 2021-10-05 14:27 | disposition home or self-care (01) ==
LOC: EN 12:03 → AC 12:04
PROVIDERS: PCP Internal Medicine; Referring Provider Internal Medicine; Visit Provider Internal Medicine Gastroenterology
PROC: 0DJ08ZZ Inspection of Upper Intestinal Tract, Via Natural or Artificial Opening Endoscopic (ICD-10-PCS; CPT 43235; principal; 2021-10-05 13:10)
DX: K22.70 Barrett's esophagus without dysplasia (principal); R13.10 Dysphagia, unspecified; K29.70 Gastritis, unspecified, without bleeding; K44.9 Diaphragmatic hernia without obstruction or gangrene; K21.9 Gastro-esophageal reflux disease without esophagitis
CPT/HCPCS: 43239; 88305; 88342; J7120

== ENCOUNTER → 2021-10-19 | Outpatient (CLI) | payer BC, SELFPAY ==
[2021-10-20 15:19] LABS: LDH 162 U/L (84-246)
[2021-10-24 16:13] LABS: Endomysial Antibody IgA Negative (Negative); Immunoglobulin A 197 mg/dL (87-352); t-Transglutaminase IgA <2 U/mL (0-3)
== END | disposition home or self-care (01) ==
LOC: LAB 14:05
PROVIDERS: PCP Internal Medicine; Visit Provider Nurse Practitioner Adult Health
DX: K29.70 Gastritis, unspecified, without bleeding (principal)
CPT/HCPCS: 36415; 82784; 83516; 83615; 86255

== ENCOUNTER → 2021-10-25 | Outpatient (CLI) | payer BC, SELFPAY ==
--- NOTE | 2021-10-25 08:59 | RAD_ITS ---
STUDY: X-RAY - ESOPHAGUS (BARIUM SWALLOW) WITH FLUOROSCOPY REASON FOR EXAM: Female, 56 years old. Trouble swallowing TECHNIQUE: 21 view(s) of the esophagus were obtained following swallowing of barium. FLUOROSCOPY TIME (if supplied): (23 seconds) minutes/seconds COMPARISON: None. FINDINGS: There is no demonstrated esophageal foreign body. There is no demonstrated stricture or mucosal abnormality. Normal gastroesophageal junction, without a demonstrated hiatal hernia. The patient ingested a 12 mm tablet of barium without any difficulty. Normal visualized aortic arch and descending thoracic aorta. Normal visualized pulmonary parenchyma. Normal visualized osseous structures of the thorax. RAD/Esophagus Dual Contrast IMPRESSION: Normal plain film x-ray examination (barium swallow) of the esophagus. Electronically Signed: Nael Paniagua MD at 10:45 EDT ,
== END | disposition home or self-care (01) ==
LOC: RAD 08:54
PROVIDERS: PCP Internal Medicine; Referring Provider Nurse Practitioner Adult Health; Visit Provider Nurse Practitioner Adult Health
DX: R13.10 Dysphagia, unspecified (principal)
CPT/HCPCS: 74221